=== PATIENT | female | born 1985 | race American Indian/Alaskan Native ===

== ENCOUNTER 2017-07-03 11:39 | Emergency (ER) | payer MEDICAID ==
[2017-07-03 11:51] VITALS: TEMP 97.9
--- NOTE | 2017-07-03 12:07 | ED PDOC ---
Arrival/HPI - General Chief Complaint: Chest Pain Time Seen by Provider: 07/03/17 11:40 Historian: Patient - History of Present Illness Narrative History of Present Illness (Text): 07/03/17 12:05 32 year old female, whose PMH includes asthma, hypertension, who presents to the emergency department complaining of sharp/pressure chest pain since 2 days. Patient reports its non-radiating and has shortness of breath. Patient denies other complaints. PMD: Dr. Sánchez Time/Duration: < week Symptom Onset: Sudden Symptom Course: Unchanged Quality: Pressure Severity Level: 10 Context: Home Past Medical History - Provider Review Nursing Documentation Reviewed: Yes - Infectious Disease Hx of Infectious Diseases: None - Cardiac Hx Hypertension: Yes (noncompliant to meds) - Pulmonary Hx Asthma: Yes - Psychiatric Hx Substance Use: No - Surgical History Hx Section: Yes (3) - Anesthesia Hx Anesthesia: Yes Hx Anesthesia Reactions: No Family/Social History - Physician Review Nursing Documentation Reviewed: Yes Family/Social History: Unknown Family HX Smoking Status: Current Some Days Smoker Hx Alcohol Use: Yes Hx Substance Use: No Allergies/Home Meds Allergies/Adverse Reactions: Allergies Penicillins Allergy (Verified 07/03/17 11:46) RASH Home Medications: Home Meds Medication Instructions Recorded Confirmed Albuterol HFA [Ventolin HFA 90 0.09 mg IH Q6 PRN 01/16/16 07/03/17 mcg/actuation (8 g)] Review of Systems - Review of Systems Constitutional: absent: Fevers Respiratory: SOB. absent: Cough Cardiovascular: Chest Pain Gastrointestinal: absent: Abdominal Pain, Vomiting Genitourinary Female: absent: Dysuria Musculoskeletal: absent: Back Pain Skin: absent: Rash Neurological: absent: Headache Endocrine: absent: Diaphoresis Hemo/Lymphatic: absent: Adenopathy Physical Exam Vital Signs Reviewed: Yes Vital Signs Temp Pulse Pulse Resp BP Pulse Ox 07/04/17 06:16 85 18 132/86 100 07/04/17 03:00 85 18 138/85 100 07/03/17 23:00 81 18 139/84 100 07/03/17 19:18 89 18 130/51 L 100 07/03/17 19:00 95 H 18 145/85 98 07/03/17 17:00 80 18 141/80 98 07/03/17 15:00 102 H 18 152/90 H 98 07/03/17 13:16 101 H 18 147/70 99 07/03/17 12:15 110 H 07/03/17 11:50 97.9 F 130 H 20 142/77 97 Temperature: Afebrile Blood Pressure: Normal Pulse: Tachycardic Respiratory Rate: Normal Appearance: Positive for: Well-Appearing, Non-Toxic, Comfortable Pain Distress: None Mental Status: Positive for: Alert and Oriented X 3 - Systems Exam Head: Present: Atraumatic, Normocephalic Pupils: Present: PERRL Extroacular Muscles: Present: EOMI Conjunctiva: Present: Normal Mouth: Present: Moist Mucous Membranes Respiratory/Chest: Present: Clear to Auscultation, Good Air Exchange. No: Respiratory Distress, Accessory Muscle Use, Wheezes, Rales, Rhonchi Cardiovascular: Present: Normal S1, S2, Tachycardic. No: Regular Rate and Rhythm, Murmurs Abdomen: No: Tenderness, Distention, Peritoneal Signs, Rebound, Guarding Neurological: Present: GCS=15, CN II-XII Intact, Speech Normal Skin: Present: Warm, Dry, Normal Color. No: Rashes Psychiatric: Present: Alert, Oriented x 3, Normal Insight, Normal Concentration Medical Decision Making ED Course and Treatment: 07/03/17 Impression: 32 year old female with tachycardia complaining of chest pain associated with shortness of breath Plan: -- EKG -- Chest X-ray -- Labs -- Urinalysis -- Reassess and disposition Progress Notes: EKG: Ordered, reviewed, and independently interpreted the EKG. Rate : 124 BPM Rhythm : tachycardia Interpretation : No ST-segment elevations or depressions, no T-wave inversions, normal intervals. Comparison : No previous EKG for comparison. 07/03/17 13:30 Chest X-ray: Creator : Raphael Lozada MD FINDINGS: LUNGS:Clear. PLEURA:No pneumothorax or pleural fluid seen. CARDIOVASCULAR:Normal. OSSEOUS STRUCTURES:No significant abnormalities. VISUALIZED UPPER ABDOMEN:Normal. OTHER FINDINGS:None. IMPRESSION: No active disease. 07/03/17 14:07 CT Angiogram reviewed by radiologist, shows: AORTA (CHEST AND ABDOMEN): The thoracic and abdominal aorta are unremarkable, without aneurysm, dissection or rupture. No intramural thrombus identified in the thoracic aorta on the non-contrast ct of the chest. The celiac axis, superior mesenteric artery, inferior mesenteric artery and the renal arteries are widely patent. Incidental finding(s): Two left renal arteries, normal variant The pelvic arteries are unremarkable. LUNGS: Clear. No nodule, mass or consolidation. MEDIASTINUM: Unremarkable. Normal caliber aorta and pulmonary arterial trunk. No aortic dissection. Normal size heart. LYMPH NODES: Unremarkable. PLEURA: Unremarkable. No pneumothorax. No pleural fluid. BONES: Unremarkable. OTHER FINDINGS: None. CT ANGIOGRAPHY OF THE ABDOMEN AND PELVIS WITH CONTRAST: LIVER: Unremarkable. No gross lesion or ductal dilatation. GALLBLADDER AND BILE DUCTS: Unremarkable. PANCREAS: Unremarkable. No gross lesion or ductal dilatation. SPLEEN: Unremarkable. ADRENALS: Unremarkable. No mass. KIDNEYS AND URETERS: Unremarkable. No hydronephrosis. No solid mass. VASCULATURE: Unremarkable. No aortic aneurysm. STOMACH AND BOWEL: Constipation without fecal impaction or obstruction. APPENDIX: A normal appendix is not visualized PERITONEUM: Unremarkable. No free fluid. No free air. LYMPH NODES: Unremarkable. No enlarged lymph nodes. BLADDER: Unremarkable. REPRODUCTIVE: Unremarkable. BONES: No acute fracture. OTHER FINDINGS: None. IMPRESSION: No evidence of aortic aneurysm, dissection or other vascular pathologic process Negative study for pulmonary embolism. 07/06/17 09:24 enodrsed to shift boss pending clinical sobriety, reassesment, and final dispo - Lab Interpretations Lab Results: 07/03/17 12:05 07/03/17 12:05 Lab Results 07/03/17 16:15: Troponin I < 0.01 07/03/17 12:50: Urine HCG, Qual Negative 07/03/17 12:50: Urine Opiates Screen Negative, Urine Methadone Screen Negative, Ur Barbiturates Screen Positive H, Ur Phencyclidine Scrn Negative, Ur Amphetamines Screen Negative, U Benzodiazepines Scrn Negative, U Oth Cocaine Metabols Negative, U Cannabinoids Screen Negative 07/03/17 12:50: Urine Color Light yellow, Urine Appearance Clear, Urine pH 6.0, Ur Specific [place] 1.025, Urine Protein Trace H, Urine Glucose (UA) Negative, Urine Ketones Negative, Urine Blood Negative, Urine Nitrate Negative, Urine Bilirubin Negative, Urine Urobilinogen 0.2, Ur Leukocyte Esterase Negative, Urine RBC Negative, Urine WBC Negative, Ur Epithelial Cells 0 - 2 07/03/17 12:05: Alcohol, Quantitative 401 H* 07/03/17 12:05: Sodium 146, Potassium 3.9, Chloride 107, Carbon Dioxide 22, Anion Gap 21 H, BUN 10, Creatinine 0.9, Est GFR ( Amer) > 60, Est GFR ( Non-Af Amer) > 60, Random Glucose 85, Calcium 8.9, Magnesium 1.9, Total Bilirubin < 0.1 L, AST 66 H, ALT 50, Alkaline Phosphatase 71, Lactate Dehydrogenase 595, Total Creatine Kinase 256 H, CK-MB (CK-2) 1.3, CK-MB (CK-2) % Cancelled, Troponin I < 0.01, NT-Pro-B Natriuret Pep 28.6, Total Protein 7.7, Albumin 4.5, Globulin 3.2, Albumin/Globulin Ratio 1.4, Lipase 98 07/03/17 12:05: PT 9.5, INR 0.83 L, APTT 30.1, D-Dimer, Quantitative 269 H 07/03/17 12:05: WBC 4.7, RBC 3.87, Hgb 10.0 L, Hct 31.9 L, MCV 82.4, MCH 25.8, MCHC 31.3, RDW 17.3 H, Plt Count 364, MPV 8.2, Gran % 34.8 L, Lymph % (Auto) 57.5 H, [place] % (Auto) 6.2 H, Eos % (Auto) 1.1 L, Baso % (Auto) 0.4, Gran # 1.64 , Lymph # (Auto) 2.7, [place] # (Auto) 0.3, Eos # (Auto) 0.1, Baso # (Auto) 0.02 I have reviewed the lab results: Yes - RAD Interpretation Radiology Orders: 07/03/17 12:05 CHEST ONE VIEW [RAD] Stat 07/03/17 12:44 ANGIOGRAPHY DISECTION PROTOCOL [CT] Stat Location Analyst: Radiologist - EKG Interpretation Interpreted by ED Physician: Yes Type: 12 lead EKG - Medication Orders Current Medication Orders: Discontinued Medications Acetaminophen (Tylenol 325mg Tab) 975 mg PO STAT STA Stop: 07/03/17 12:07 Last Admin: 07/03/17 12:11 Dose: 975 mg MAR Pain/Vitals Document 07/03/17 12:11 EWO (Rec: 07/03/17 12:11 EWO [id number]) Pain Reassessment Is This A Pain ReAssessment? No Sleep Is patient sleeping during reassessment? No Presence of Pain Presence of Pain Yes Pain Scale Used Pain Scale Used Numeric Location Pain Location Body Site Chest Description Constant Pressure Intensity 3 Scale Used Numeric Pain Behavior Guarding Acetaminophen (Tylenol 325mg Tab) 650 mg PO STAT STA Stop: 07/03/17 16:58 Last Admin: 07/03/17 17:05 Dose: 650 mg MAR Pain/Vitals Document 07/03/17 17:05 EWO (Rec: 07/03/17 17:05 [facility] [id number]) Pain Reassessment Is This A Pain ReAssessment? Yes Sleep Is patient sleeping during reassessment? No Presence of Pain Presence of Pain Yes Pain Scale Used Pain Scale Used Numeric Location Pain Location Body Site Chest Description Intermittent Intensity 4 Scale Used Numeric Sodium Chloride (Sodium Chloride 0.9%) 1,000 mls @ 999 mls/hr IV .Q1H1M STA Stop: 07/03/17 16:27 Last Admin: 07/03/17 16:30 Dose: 999 mls/hr eMAR Start Stop Document 07/03/17 16:30 EWO (Rec: 07/03/17 17:05 [facility] [id number]) Intravenous Solution Start Date 07/03/17 Start Time 16:30 End Date 07/03/17 End time 17:30 Total Infusion Time 60 Ketorolac Tromethamine (Toradol) 30 mg IVP STAT STA Stop: 07/03/17 13:34 Last Admin: 07/03/17 15:16 Dose: 30 mg MAR Pain Assessment Document 07/03/17 15:16 EWO (Rec: 07/03/17 15:17 [facility] [id number]) Pain Reassessment Is this a pain reassessment? Yes Sleep Is patient sleeping during reassessment? No Presence of Pain Presence of Pain Yes Pain Scale Used Pain Scale Used Numeric Location Pain Location Body Site Chest Description Description Intermittent Intensity of Pain at present 4 IVP Administration Document 07/03/17 15:16 EWO (Rec: 07/03/17 15:17 [facility] [id number]) Charges for Administration # of IVP Administrations 1 Ondansetron HCl (Zofran Inj) 4 mg IVP ONCE ONE Stop: 07/03/17 20:37 Last Admin: 07/03/17 20:45 Dose: 4 mg IVP Administration Document 07/03/17 20:45 AD (Rec: 07/03/17 20:45 AD [id number]) Charges for Administration # of IVP Administrations 1 - Scribe Statement The provider has reviewed the documentation as recorded by the Scribe Rebecca Martin Provider Scribe Attestation: All medical record entries made by the Scribe were at my direction and personally dictated by me. I have reviewed the chart and agree that the record accurately reflects my personal performance of the history, physical exam, medical decision making, and the department course for this patient. I have also personally directed, reviewed, and agree with the discharge instructions and disposition. Disposition/Present on Arrival - Present on Arrival Any Indicators Present on Arrival: No History of DVT/PE: No History of Uncontrolled Diabetes: No Urinary Catheter: No History of Decub. Ulcer: No History Surgical Site Infection Following: None - Disposition Have Diagnosis and Disposition been Completed?: Yes Diagnosis: Alcohol intoxication, Musculoskeletal chest pain Disposition: HOME/ ROUTINE Disposition Time: 09:20 Condition: GOOD Discharge Instructions (ExitCare): Alcohol Abuse and Alcoholism (DC), Chest Pain (ED) Additional Instructions: Avoid alcohol use/advil as directed/follow up with your doctor this week Referrals: Austin Sánchez MD [Primary Care Provider] - Follow up with primary Forms: [employer] (Slovak)
[2017-07-03 12:14] LABS: BASO # 0.02 K/mm3 (0.0-2.0); BASO % 0.4 % (0.0-3.0); EOS # 0.1 (0.0-0.7); EOS % 1.1 % (1.5-5.0); GRAN # 1.64 (1.4-6.5); GRAN % 34.8 % (50.0-68.0); LYMPH # 2.7 (1.2-3.4); LYMPH % 57.5 % (22.0-35.0); MEAN CELL VOLUME 82.4 fl (80.0-105.0); MEAN CORPUSCULAR HEMOGLOBIN 25.8 pg (25.0-35.0); MEAN CORPUSCULAR HGB CONC 31.3 g/dl (31.0-37.0); MEAN PLATELET VOLUME 8.2 fl (7.0-11.0); MONO # 0.3 (0.1-0.6); MONO % 6.2 % (1.0-6.0); RBC 3.87 10^6/uL (3.5-6.1); RED CELL DISTRIBUTION WIDTH 17.3 % (11.5-14.5); WHITE BLOOD COUNT 4.7 10^3/ul (4.5-11.0)
[2017-07-03 12:24] LABS: ALB/GLOB RATIO 1.4 (1.1-1.8); ALBUMIN 4.5 g/dL (3.0-4.8); ALT/SGPT 50 U/L (7-56); AST/SGOT 66 U/L (14-36); BLOOD UREA NITROGEN 10 mg/dL (7-21); CALCIUM 8.9 mg/dL (8.4-10.5); GFR AFRICAN-AMERICAN > 60; GFR NON-AFRICAN AMERICAN > 60; LIPASE 98 U/L (23-300)
[2017-07-03 12:36] LABS: B-TYPE NATRIURETIC PEPTIDE 28.6 pg/mL (0-450); TROPONIN I < 0.01 ng/mL
[2017-07-03 12:37] LABS: INR 0.83 (0.93-1.08); PARTIAL THROMBOPLASTIN TIME 30.1 Seconds (25.1-36.5); PROTHROMBIN TIME 9.5 SECONDS (9.4-12.5)
[2017-07-03 12:48] LABS: CK-MB 1.3 ng/mL (0.0-3.6)
[2017-07-03 13:01] LABS: URINE BILIRUBIN NEGATIVE (NEGATIVE); URINE BLOOD NEGATIVE (NEGATIVE); URINE GLUCOSE (UA) NEGATIVE (NEGATIVE); URINE LEUKOCYTE ESTERASE NEGATIVE Leu/uL (NEGATIVE); URINE PROTEIN TRACE mg/dL (<30 mg/dL); URINE UROBILINOGEN 0.2 E.U./dL (<1 E.U./dL)
[2017-07-03 13:03] LABS: URINE APPEARANCE CLEAR (CLEAR); URINE COLOR LIGHT YELLOW (YELLOW)
[2017-07-03 13:17] VITALS: RESP 18
[2017-07-03 13:17] LABS: URINE EPITHELIAL CELLS 0 - 2 /hpf (0-5); URINE RBC NEGATIVE /hpf (0-2); URINE WBC NEGATIVE /hpf (0-6)
[2017-07-03 13:23] LABS: BARBITURATES, UR POSITIVE (NEGATIVE); BENZODIAZEPINES, UR NEGATIVE (NEGATIVE); OPIATES, UR NEGATIVE (NEGATIVE); PHENCYCLIDINE, UR NEGATIVE (NEGATIVE)
--- NOTE | 2017-07-03 13:23 | CT ---
PROCEDURE: CT Angiography Chest, Abdomen and Pelvis with and without intravenous contrast HISTORY: cp radiating to back, also eval for pe COMPARISON: None. TECHNIQUE: This CT exam was performed using one or more of the following dose reduction techniques: Automated exposure control, adjustment of the mA and/or kV according to patient size, and/or use of iterative reconstruction technique. IV dose administered: 150 cc Omnipaque 350 Mean Hounsfield unit values in the main pulmonary artery: 340.21 Radiation dose: Total exam DLP = 361.57 mGy-cm. FINDINGS: CT ANGIOGRAPHY OF THE CHEST WITH & WITHOUT CONTRAST: AORTA (CHEST AND ABDOMEN): The thoracic and abdominal aorta are unremarkable, without aneurysm, dissection or rupture. No intramural thrombus identified in the thoracic aorta on the non-contrast ct of the chest. The celiac axis, superior mesenteric artery, inferior mesenteric artery and the renal arteries are widely patent. Incidental finding(s): Two left renal arteries, normal variant The pelvic arteries are unremarkable. LUNGS: Clear. No nodule, mass or consolidation. MEDIASTINUM: Unremarkable. Normal caliber aorta and pulmonary arterial trunk. No aortic dissection. Normal size heart. LYMPH NODES: Unremarkable. PLEURA: Unremarkable. No pneumothorax. No pleural fluid. BONES: Unremarkable. OTHER FINDINGS: None. CT ANGIOGRAPHY OF THE ABDOMEN AND PELVIS WITH CONTRAST: LIVER: Unremarkable. No gross lesion or ductal dilatation. GALLBLADDER AND BILE DUCTS: Unremarkable. PANCREAS: Unremarkable. No gross lesion or ductal dilatation. SPLEEN: Unremarkable. ADRENALS: Unremarkable. No mass. KIDNEYS AND URETERS: Unremarkable. No hydronephrosis. No solid mass. VASCULATURE: Unremarkable. No aortic aneurysm. STOMACH AND BOWEL: Constipation without fecal impaction or obstruction. APPENDIX: A normal appendix is not visualized PERITONEUM: Unremarkable. No free fluid. No free air. LYMPH NODES: Unremarkable. No enlarged lymph nodes. BLADDER: Unremarkable. REPRODUCTIVE: Unremarkable. BONES: No acute fracture. OTHER FINDINGS: None. IMPRESSION: No evidence of aortic aneurysm, dissection or other vascular pathologic process. Negative study for pulmonary embolism.
--- NOTE | 2017-07-03 13:24 | RAD ---
PROCEDURE: CHEST RADIOGRAPH, 1 VIEW HISTORY: Chest pain. COMPARISON: None available. FINDINGS: LUNGS: Clear. PLEURA: No pneumothorax or pleural fluid seen. CARDIOVASCULAR: Normal. OSSEOUS STRUCTURES: No significant abnormalities. VISUALIZED UPPER ABDOMEN: Normal. OTHER FINDINGS: None. IMPRESSION: No active disease.
[2017-07-03] MEDS ORDERED: Sodium Chloride 0.9% 1,000 ML IV STA (15:27)
[2017-07-03] MEDS ORDERED: Albuterol-Ipratrop 3 mg / 0.5 (3 ml) UD ONE (15:32)
[2017-07-03 19:19] VITALS: O2SAT 100
--- NOTE | 2017-07-03 19:54 | ED PDOC ---
Physical Exam - Physical Exam Narrative Physical Exam (Text): 07/03/17 19:00 Case endorsed to me from awaiting patient sobriety prior to discharge.Pt. presented intoxicated complaining of some chest discomfort.Pt. with negative workup ,negative serial enzymes,negative CT chest. Vital Signs Temp Pulse Pulse Resp BP Pulse Ox 07/04/17 03:00 85 18 138/85 100 07/03/17 23:00 81 18 139/84 100 07/03/17 19:18 89 18 130/51 L 100 07/03/17 19:00 95 H 18 145/85 98 07/03/17 17:00 80 18 141/80 98 07/03/17 15:00 102 H 18 152/90 H 98 07/03/17 13:16 101 H 18 147/70 99 07/03/17 12:15 110 H 07/03/17 11:50 97.9 F 130 H 20 142/77 97 Medical Decision Making - Lab Interpretations Lab Results: 07/03/17 12:05 07/03/17 12:05 Lab Results 07/03/17 16:15: Troponin I < 0.01 07/03/17 12:50: Urine HCG, Qual Negative 07/03/17 12:50: Urine Opiates Screen Negative, Urine Methadone Screen Negative, Ur Barbiturates Screen Positive H, Ur Phencyclidine Scrn Negative, Ur Amphetamines Screen Negative, U Benzodiazepines Scrn Negative, U Oth Cocaine Metabols Negative, U Cannabinoids Screen Negative 07/03/17 12:50: Urine Color Light yellow, Urine Appearance Clear, Urine pH 6.0, Ur Specific [place] 1.025, Urine Protein Trace H, Urine Glucose (UA) Negative, Urine Ketones Negative, Urine Blood Negative, Urine Nitrate Negative, Urine Bilirubin Negative, Urine Urobilinogen 0.2, Ur Leukocyte Esterase Negative, Urine RBC Negative, Urine WBC Negative, Ur Epithelial Cells 0 - 2 07/03/17 12:05: Alcohol, Quantitative 401 H* 07/03/17 12:05: Sodium 146, Potassium 3.9, Chloride 107, Carbon Dioxide 22, Anion Gap 21 H, BUN 10, Creatinine 0.9, Est GFR ( Amer) > 60, Est GFR ( Non-Af Amer) > 60, Random Glucose 85, Calcium 8.9, Magnesium 1.9, Total Bilirubin < 0.1 L, AST 66 H, ALT 50, Alkaline Phosphatase 71, Lactate Dehydrogenase 595, Total Creatine Kinase 256 H, CK-MB (CK-2) 1.3, CK-MB (CK-2) % Cancelled, Troponin I < 0.01, NT-Pro-B Natriuret Pep 28.6, Total Protein 7.7, Albumin 4.5, Globulin 3.2, Albumin/Globulin Ratio 1.4, Lipase 98 07/03/17 12:05: PT 9.5, INR 0.83 L, APTT 30.1, D-Dimer, Quantitative 269 H 07/03/17 12:05: WBC 4.7, RBC 3.87, Hgb 10.0 L, Hct 31.9 L, MCV 82.4, MCH 25.8, MCHC 31.3, RDW 17.3 H, Plt Count 364, MPV 8.2, Gran % 34.8 L, Lymph % (Auto) 57.5 H, [place] % (Auto) 6.2 H, Eos % (Auto) 1.1 L, Baso % (Auto) 0.4, Gran # 1.64 , Lymph # (Auto) 2.7, [place] # (Auto) 0.3, Eos # (Auto) 0.1, Baso # (Auto) 0.02 - RAD Interpretation Radiology Orders: 07/03/17 12:05 CHEST ONE VIEW [RAD] Stat 07/03/17 12:44 ANGIOGRAPHY DISECTION PROTOCOL [CT] Stat - Medication Orders Current Medication Orders: Discontinued Medications Acetaminophen (Tylenol 325mg Tab) 975 mg PO STAT STA Stop: 07/03/17 12:07 Last Admin: 07/03/17 12:11 Dose: 975 mg MAR Pain/Vitals Document 07/03/17 12:11 EWO (Rec: 07/03/17 12:11 EWO [id number]) Pain Reassessment Is This A Pain ReAssessment? No Sleep Is patient sleeping during reassessment? No Presence of Pain Presence of Pain Yes Pain Scale Used Pain Scale Used Numeric Location Pain Location Body Site Chest Description Constant Pressure Intensity 3 Scale Used Numeric Pain Behavior Guarding Acetaminophen (Tylenol 325mg Tab) 650 mg PO STAT STA Stop: 07/03/17 16:58 Last Admin: 07/03/17 17:05 Dose: 650 mg MAR Pain/Vitals Document 07/03/17 17:05 EWO (Rec: 07/03/17 17:05 EWO [id number]) Pain Reassessment Is This A Pain ReAssessment? Yes Sleep Is patient sleeping during reassessment? No Presence of Pain Presence of Pain Yes Pain Scale Used Pain Scale Used Numeric Location Pain Location Body Site Chest Description Intermittent Intensity 4 Scale Used Numeric Sodium Chloride (Sodium Chloride 0.9%) 1,000 mls @ 999 mls/hr IV .Q1H1M STA Stop: 07/03/17 16:27 Last Admin: 07/03/17 16:30 Dose: 999 mls/hr eMAR Start Stop Document 07/03/17 16:30 EWO (Rec: 07/03/17 17:05 O [id number]) Intravenous Solution Start Date 07/03/17 Start Time 16:30 End Date 07/03/17 End time 17:30 Total Infusion Time 60 Ketorolac Tromethamine (Toradol) 30 mg IVP STAT STA Stop: 07/03/17 13:34 Last Admin: 07/03/17 15:16 Dose: 30 mg MAR Pain Assessment Document 07/03/17 15:16 EWO (Rec: 07/03/17 15:17 EWO [id number]) Pain Reassessment Is this a pain reassessment? Yes Sleep Is patient sleeping during reassessment? No Presence of Pain Presence of Pain Yes Pain Scale Used Pain Scale Used Numeric Location Pain Location Body Site Chest Description Description Intermittent Intensity of Pain at present 4 IVP Administration Document 07/03/17 15:16 EWO (Rec: 07/03/17 15:17 EWO [id number]) Charges for Administration # of IVP Administrations 1 Ondansetron HCl (Zofran Inj) 4 mg IVP ONCE ONE Stop: 07/03/17 20:37 Last Admin: 07/03/17 20:45 Dose: 4 mg IVP Administration Document 07/03/17 20:45 AD (Rec: 07/03/17 20:45 AD [id number]) Charges for Administration # of IVP Administrations 1 Disposition/Present on Arrival - Present on Arrival Any Indicators Present on Arrival: No History of DVT/PE: No History of Uncontrolled Diabetes: No Urinary Catheter: No History of Decub. Ulcer: No History Surgical Site Infection Following: None - Disposition Have Diagnosis and Disposition been Completed?: Yes Diagnosis: Alcohol intoxication, Musculoskeletal chest pain Disposition: HOME/ ROUTINE Disposition Time: 06:03 Patient Plan: Discharge Condition: GOOD Discharge Instructions (ExitCare): Chest Pain (ED), Alcohol Abuse and Alcoholism (DC) Additional Instructions: Avoid alcohol use/advil as directed/follow up with your doctor this week Referrals: Austin Sánchez MD [Primary Care Provider] - Follow up with primary Forms: [employer] (Citizen Of [place])
[2017-07-04 04:51] VITALS: PULSE 85
[2017-07-04 06:18] VITALS: BP 132/86
--- NOTE | 2017-07-04 09:27 | CARD ---
APPROVED REPORT EKG Measurement Heart [id number] <Conclusion> Sinus tachycardia Biatrial enlargement Nonspecific T wave abnormality RVCD LVH by voltage Prolonged QTc
== END 2017-07-04 06:16 | disposition home or self-care (01) ==
LOC: ED 11:39
DX: F10.129 Alcohol abuse with intoxication, unspecified (principal); R07.89 Other chest pain; F17.200 Nicotine dependence, unspecified, uncomplicated; I10 Essential (primary) hypertension
CPT/HCPCS: 71045; 71275; 74175; 80053; 80320; 80324; 80345; 80346; 80349; 80353; 80358; 80361; 81001; 82550; 82553; 83615; 83690; 83735; 83880; 83992; 84484; 84703; 85025; 85378; 85610; 85730; 93005; 96361; 96374; 96375; 99285; J1885; J2405; J7040; Q9967

== ENCOUNTER 2018-01-03 09:04 | Emergency (ER) | payer MEDICAID ==
[2018-01-03 09:28] VITALS: O2SAT 100
[2018-01-03] MEDS ORDERED: Sodium Chloride 0.9% 1,000 ML IV STA (10:05)
--- NOTE | 2018-01-03 10:11 | ED PDOC ---
Arrival/HPI - General Chief Complaint: Abdominal Pain Time Seen by Provider: 01/03/18 09:06 Historian: Patient - History of Present Illness Narrative History of Present Illness (Text): 01/03/18 10:08 32 yo F with PMhx of asthma, HTN, medication noncompliance presenting to ED with epigastric abdominal pain that began 2 days ago. Patient states the pain is sharp and colicky in nature, comes and goes, currently rated 5/10, localized to epigastric region with radiation to the back. Patient also endorses associated nausea and 1 episode of NBNB vomiting. Denies fevers/chills, headaches, dizziness, chest pain, palpitations, diarrhea, constipation, dysuria, or changes in stool. PMHx: asthma, HTN PSHx: denies Allergies: PCN Home Meds: as per chart Social Hx: +alcohol-last drank yesterday, +tobacco-3 cigarettes/day x 15 years, denies drug use FHx: noncontributory PMD: Dr. Sánchez Time/Duration: < week Symptom Onset: Sudden Symptom Course: [place] Quality: Stabbing Severity Level: 5 Activities at Onset: Light Past Medical History - Provider Review Nursing Documentation Reviewed: Yes - Infectious Disease Hx of Infectious Diseases: None - Cardiac Hx Hypertension: Yes (noncompliant to meds) - Pulmonary Hx Asthma: Yes - Psychiatric Hx Substance Use: No - Surgical History Hx Section: Yes (2x) - Anesthesia Hx Anesthesia: Yes Hx Anesthesia Reactions: No Family/Social History - Physician Review Nursing Documentation Reviewed: Yes Family/Social History: Unknown Family HX Smoking Status: Current Some Days Smoker Hx Alcohol Use: Yes Frequency of alcohol use: Few days per week Hx Substance Use: No Allergies/Home Meds Allergies/Adverse Reactions: Allergies Penicillins Allergy (Verified 01/03/18 09:28) RASH Home Medications: Home Meds Medication Instructions Recorded Confirmed Albuterol HFA [Ventolin HFA 90 0.09 mg IH Q6 PRN 01/16/16 01/03/18 mcg/actuation (8 g)] Enalapril Maleate [Vasotec] 20 mg PO DAILY 01/03/18 01/03/18 Review of Systems - Review of Systems Constitutional: Normal Eyes: Normal ENT: Normal Respiratory: Normal. absent: SOB, Cough, Sputum, Wheezing Cardiovascular: Normal. absent: Chest Pain, Palpitations, Calf Pain, DIAZ, Syncope Gastrointestinal: Abdominal Pain (epigastric), Appetite Changes (decreased appetite). absent: Constipation, Diarrhea, Nausea, Vomiting Genitourinary Female: Normal Musculoskeletal: Back Pain Skin: Normal. absent: Rash, Skin Lesions, Laceration Neurological: Normal. absent: Headache, Dizziness, Focal Weakness, Gait Changes Endocrine: Normal Hemo/Lymphatic: Normal Psychiatric: Normal Physical Exam Vital Signs Reviewed: Yes Vital Signs Temp Pulse Resp BP Pulse Ox 01/03/18 09:24 97.5 F L 100 H 22 161/118 H 100 Temperature: Afebrile Blood Pressure: Hypertensive Pulse: Tachycardic Respiratory Rate: Normal Appearance: Positive for: Well-Appearing, Non-Toxic, Comfortable Pain Distress: Mild Mental Status: Positive for: Alert and Oriented X 3 - Systems Exam Head: Present: Atraumatic, Normocephalic Pupils: Present: PERRL Extroacular Muscles: Present: EOMI Conjunctiva: Present: Normal Mouth: Present: Moist Mucous Membranes Neck: Present: Normal Range of Motion Respiratory/Chest: Present: Clear to Auscultation, Good Air Exchange. No: Respiratory Distress, Accessory Muscle Use, Wheezes, Rales, Rhonchi Cardiovascular: Present: Normal S1, S2, Tachycardic Abdomen: Present: Tenderness (TTP epigastric region), Normal Bowel Sounds. No: Distention, Peritoneal Signs, Rebound, Guarding, Mass/Organomegaly Back: Present: Normal Inspection. No: CVA Tenderness, Paraspinal Tenderness Upper Extremity: Present: Normal Inspection, Normal ROM, NORMAL PULSES, Capillary Refill < 2s. No: Cyanosis, Edema, Tenderness, Swelling Lower Extremity: Present: Normal Inspection, NORMAL PULSES, Normal ROM, Capillary Refill < 2 s. No: Edema, CALF TENDERNESS, Cyanosis, Tenderness, Swelling Neurological: Present: CN II-XII Intact, Speech Normal Skin: Present: Warm, Dry, Normal Color. No: Rashes Psychiatric: Present: Alert, Oriented x 3, Normal Insight, Normal Concentration Medical Decision Making ED Course and Treatment: 01/03/18 10:13 32 yo F with PMHx of HTN, asthma presenting to ED with epigastric abdominal pain x 2 days, r/o pancreatitis Plan: --CBC, CMP --lipase, amylase --IVF --zofran --CT abdomen/pelvis --UA --urine --reassess and disposition - RAD Interpretation Radiology Orders: 01/03/18 10:05 ABD & PELVIS IV CONTRAST ONLY [CT] Stat - Medication Orders Current Medication Orders: Sodium Chloride (Sodium Chloride 0.9%) 1,000 mls @ 999 mls/hr IV .Q1H1M STA Stop: 01/03/18 11:05 Ondansetron HCl (Zofran Inj) 4 mg IVP STAT STA Stop: 01/03/18 10:06 Disposition/Present on Arrival - Present on Arrival Any Indicators Present on Arrival: No History of DVT/PE: No History of Uncontrolled Diabetes: No Urinary Catheter: No History of Decub. Ulcer: No History Surgical Site Infection Following: None - Disposition Have Diagnosis and Disposition been Completed?: Yes Diagnosis: Colitis Disposition: HOME/ ROUTINE Disposition Time: 12:31 Patient Plan: Discharge Condition: STABLE Discharge Instructions (ExitCare): Irritable Bowel Syndrome (DC), Inflammatory Bowel Disease (DC) Additional Instructions: DANIELLE ZHU, thank you for letting us take care of you today. Your provider was Scot Keating MD and you were treated for STOMACH PAIN. The emergency medical care you received today was directed at your acute symptoms. If you were prescribed any medication, please fill it and take as directed. It may take several days for your symptoms to resolve. Return to the Emergency Department if your symptoms worsen, do not improve, or if you have any other problems. Please contact your doctor or call one of the physicians/clinics you have been referred to that are listed on the Patient Visit Information form that is included in your discharge packet. Bring any paperwork you were given at discharge with you along with any medications you are taking to your follow up visit. Our treatment cannot replace ongoing medical care by a primary care provider outside of the emergency department. Thank you for allowing the [facility] team to be part of your care today. Prescriptions: Ciprofloxacin [Cipro] 500 mg PO BID 10 Days #20 tab Metronidazole [Flagyl] 500 mg PO TID 10 Days #30 tablet Referrals: [facility] at [facility] [Outside] - Follow up with primary Ju Ku MD [Medical Doctor] - Follow up with primary Lydia Matos MD [Medical Doctor] - Follow up with primary Forms: [employer] (Azeri), WORK NOTE
[2018-01-03 10:14] LABS: URINE BILIRUBIN NEGATIVE (NEGATIVE); URINE BLOOD NEGATIVE (NEGATIVE); URINE GLUCOSE (UA) NEGATIVE (NEGATIVE); URINE LEUKOCYTE ESTERASE NEGATIVE Leu/uL (NEGATIVE); URINE PROTEIN NEGATIVE mg/dL (<30 mg/dL); URINE UROBILINOGEN 0.2 E.U./dL (<1 E.U./dL)
[2018-01-03 10:15] LABS: URINE APPEARANCE CLEAR (CLEAR); URINE COLOR YELLOW (YELLOW)
[2018-01-03 10:38] LABS: BASO # 0.01 K/mm3 (0.0-2.0); BASO % 0.3 % (0.0-3.0); EOS # 0.1 (0.0-0.7); EOS % 1.4 % (1.5-5.0); GRAN # 1.77 (1.4-6.5); GRAN % 49.3 % (50.0-68.0); HEMOGLOBIN 11.5 g/dL (12.0-16.0); LYMPH # 1.6 (1.2-3.4); LYMPH % 43.7 % (22.0-35.0); MEAN CELL VOLUME 84.8 fl (80.0-105.0); MEAN CORPUSCULAR HEMOGLOBIN 26.5 pg (25.0-35.0); MEAN CORPUSCULAR HGB CONC 31.3 g/dl (31.0-37.0); MEAN PLATELET VOLUME 8.5 fl (7.0-11.0); MONO # 0.2 (0.1-0.6); MONO % 5.3 % (1.0-6.0); RBC 4.34 10^6/uL (3.5-6.1); RED CELL DISTRIBUTION WIDTH 18.2 % (11.5-14.5); WHITE BLOOD COUNT 3.6 10^3/ul (4.5-11.0)
[2018-01-03 10:51] LABS: ALB/GLOB RATIO 1.3 (1.1-1.8); ALBUMIN 4.7 g/dL (3.0-4.8); ALT/SGPT 45 U/L (7-56); AMYLASE 95 U/L (35-125); AST/SGOT 64 U/L (14-36); BLOOD UREA NITROGEN 15 mg/dL (7-21); CALCIUM 9.3 mg/dL (8.4-10.5); GFR NON-AFRICAN AMERICAN > 60; LIPASE 89 U/L (23-300)
[2018-01-03] MEDS ORDERED: Iohexol 350 MG/100 ML VIAL ONE (11:23)
--- NOTE | 2018-01-03 11:56 | CT ---
Date of service: 01/03/2018 PROCEDURE: CT Abdomen and Pelvis with contrast HISTORY: epigastric pain COMPARISON: None. TECHNIQUE: Contrast dose: 100 mL Omnipaque 350 Radiation dose: Total exam DLP = 256.66 mGy-cm. This CT exam was performed using one or more of the following dose reduction techniques: Automated exposure control, adjustment of the mA and/or kV according to patient size, and/or use of iterative reconstruction technique. FINDINGS: LOWER THORAX: Unremarkable. LIVER: Unremarkable. No gross lesion or ductal dilatation. GALLBLADDER AND BILE DUCTS: Unremarkable. PANCREAS: Unremarkable. No gross lesion or ductal dilatation. SPLEEN: Unremarkable. ADRENALS: Unremarkable. No mass. KIDNEYS AND URETERS: Unremarkable. No hydronephrosis. No solid mass. VASCULATURE: Unremarkable. No aortic aneurysm. BOWEL: Circumferential mural thickening of the distal ascending colon, hepatic flexure and proximal transverse colon consistent with nonspecific colitis. No bowel obstruction. No other abnormal bowel loops are identified. APPENDIX: Not identified PERITONEUM: Unremarkable. No free fluid. No free air. LYMPH NODES: Unremarkable. No enlarged lymph nodes. BLADDER: Unremarkable. REPRODUCTIVE: Unremarkable. BONES: No acute fracture. OTHER FINDINGS: None. IMPRESSION: Findings consistent with nonspecific colitis involving ascending colon, hepatic flexure and transverse colon as described. No other significant abnormality is identified.
[2018-01-03 12:34] VITALS: BP 145/93; PULSE 91; RESP 18; TEMP 98
== END 2018-01-03 12:43 | disposition home or self-care (01) ==
LOC: ED 09:04
DX: K52.9 Noninfective gastroenteritis and colitis, unspecified (principal); I10 Essential (primary) hypertension
CPT/HCPCS: 74177; 80053; 81003; 82150; 83690; 83735; 84100; 85025; 96361; 96374; 99284; J2405; J7030; Q9967

== ENCOUNTER 2018-03-02 01:42 | Observation (INO) | payer MEDICAID ==
--- NOTE | 2018-03-02 02:23 | ED PDOC ---
Arrival/HPI - General Chief Complaint: Chest Pain Time Seen by Provider: 03/02/18 01:43 Historian: Patient - History of Present Illness Narrative History of Present Illness (Text): 03/02/18 02:19 32 year old female, whose past medical history includes asthma, hypertension, presents to the emergency department complaining of chest and back pain, since yesterday. Patient states the pain is sharp and intermittent. Patient informs pain is localized to left chest. Patient states she has been feeling some nausea and vomiting. Patient also informs of dizziness and possible syncopal episode recently. Patient informs chest pain is exacerbated by deeper inhalation. Patient denies any fevers, chills, headache, cough, abdominal pain, diarrhea, neck pain, urinary/bowel changes, or any other complaint. Time/Duration: 24 hours Symptom Course: Unchanged Context: Home Past Medical History - Provider Review Nursing Documentation Reviewed: Yes - Infectious Disease Hx of Infectious Diseases: None - Cardiac Hx Cardiac Disorders: Yes Hx Hypertension: Yes (noncompliant to meds) - Pulmonary Hx Respiratory Disorders: Yes Hx Asthma: Yes - Psychiatric Hx Substance Use: No - Surgical History Hx Section: Yes (x3) - Anesthesia Hx Anesthesia: Yes Hx Anesthesia Reactions: No Family/Social History - Physician Review Nursing Documentation Reviewed: Yes Family/Social History: No Known Family HX Smoking Status: Light Smoker < 10 Cigarettes Daily Hx Alcohol Use: Yes Frequency of alcohol use: Socially Hx Substance Use: No Allergies/Home Meds Allergies/Adverse Reactions: Allergies Penicillins Allergy (Verified 01/03/18 09:28) RASH Home Medications: Home Meds Medication Instructions Recorded Confirmed Albuterol HFA [Ventolin HFA 90 0.09 mg IH Q6 PRN 01/16/16 03/02/18 mcg/actuation (8 g)] Enalapril Maleate [Vasotec] 30 mg PO TID 01/03/18 03/02/18 Acetaminophen/Butalbital/Caf 1 tab PO PRN PRN 03/02/18 03/02/18 [Fioricet] Review of Systems - Physician Review All systems were reviewed & negative as marked: Yes - Review of Systems Constitutional: absent: Fevers, Night Sweats Cardiovascular: Chest Pain Gastrointestinal: Nausea, Vomiting. absent: Abdominal Pain, Diarrhea Musculoskeletal: Back Pain. absent: Neck Pain Neurological: Dizziness. absent: Headache Physical Exam Vital Signs Reviewed: Yes Vital Signs Temp Pulse Resp BP Pulse Ox 03/02/18 01:50 98.6 F 102 H 20 165/115 H 100 Temperature: Afebrile Blood Pressure: Hypertensive Pulse: Tachycardic Respiratory Rate: Normal Appearance: Positive for: Well-Appearing, Non-Toxic, Comfortable Pain Distress: None Mental Status: Positive for: Alert and Oriented X 3 - Systems Exam Head: Present: Atraumatic, Normocephalic Pupils: Present: PERRL Extroacular Muscles: Present: EOMI Conjunctiva: Present: Normal Mouth: Present: Moist Mucous Membranes Neck: Present: Normal Range of Motion Respiratory/Chest: Present: Clear to Auscultation, Good Air Exchange. No: Respiratory Distress, Accessory Muscle Use Cardiovascular: Present: Normal S1, S2, Tachycardic, Other (Hypertensive) Abdomen: No: Tenderness, Distention, Peritoneal Signs Back: Present: Normal Inspection Upper Extremity: Present: Normal Inspection. No: Cyanosis, Edema Lower Extremity: Present: Normal Inspection. No: Edema Neurological: Present: Speech Normal Skin: Present: Warm, Dry, Normal Color. No: Rashes Psychiatric: Present: Alert, Oriented x 3, Normal Insight, Normal Concentration Medical Decision Making ED Course and Treatment: 03/02/18 02:29 Impression: 32 year old female presents with chest and back pain. Plan: -- Labs -- Chest X-ray -- Urinalysis -- Toradol -- Reassess and disposition Prior Visits: Notes and results from previous visits were reviewed. Progress Notes: 03/02/18 05:[address] Pavon about patient's case, and he accepts admission of patient for ACS. - RAD Interpretation Narrative RAD Interpretations (Text): 03/02/18 05:54 CTA OF THE CHEST WITH IV CONTRAST CLINICAL HISTORY: Shortness of breath, chest pain. TECHNIQUE: Axial and reformatted sagittal and coronal images of the chest obtained after bolus IV contrast administration. FINDINGS: Normal enhancement of the main pulmonary artery and right and left pulmonary arteries. Normal enhancement of the bilateral peripheral pulmonary arteries. There is no demonstrated pulmonary embolism. Normal thoracic aorta and visualized great vessels. There is no demonstrated aortic dissection. Normal heart and pericardium. Normal mediastinum. Normal hilar regions. Normal visualized trachea and bronchi. The lungs are well expanded. Normal pulmonary parenchyma. Normal pleura. Normal chest wall structures. Normal osseous structures. Hepatomegaly with hepatic steatosis. IMPRESSION: No demonstrated pulmonary embolism or arterial dissection. Farm Implement Mechanic: Radiologist - Scribe Statement The provider has reviewed the documentation as recorded by the Scribe Parag Johnson Provider Scribe Attestation: All medical record entries made by the Scribe were at my direction and personally dictated by me. I have reviewed the chart and agree that the record accurately reflects my personal performance of the history, physical exam, medical decision making, and the department course for this patient. I have also personally directed, reviewed, and agree with the discharge instructions and disposition. Disposition/Present on Arrival - Present on Arrival History of DVT/PE: No History of Uncontrolled Diabetes: No Urinary Catheter: No History of Decub. Ulcer: No History Surgical Site Infection Following: None - Disposition
[2018-03-02] MEDS ORDERED: Sodium Chloride 0.9% 1,000 ML IV STA (02:27)
[2018-03-02 03:06] LABS: BASO # 0.01 K/mm3 (0.0-2.0); BASO % 0.2 % (0.0-3.0); GRAN # 3.07 (1.4-6.5); GRAN % 60.1 % (50.0-68.0); HEMOGLOBIN 11.9 g/dL (12.0-16.0); LYMPH # 1.7 (1.2-3.4); LYMPH % 32.3 % (22.0-35.0); MEAN CELL VOLUME 87.4 fl (80.0-105.0); MEAN CORPUSCULAR HEMOGLOBIN 27.8 pg (25.0-35.0); MEAN CORPUSCULAR HGB CONC 31.8 g/dl (31.0-37.0); MEAN PLATELET VOLUME 8.4 fl (7.0-11.0); MONO # 0.4 (0.1-0.6); MONO % 7.4 % (1.0-6.0); RBC 4.28 10^6/uL (3.5-6.1); RED CELL DISTRIBUTION WIDTH 18.1 % (11.5-14.5); WHITE BLOOD COUNT 5.1 10^3/uL (4.5-11.0)
[2018-03-02 03:09] LABS: URINE BILIRUBIN NEGATIVE (NEGATIVE); URINE BLOOD LARGE (NEGATIVE); URINE GLUCOSE (UA) NEGATIVE (NEGATIVE); URINE LEUKOCYTE ESTERASE TRACE Leu/uL (NEGATIVE); URINE PROTEIN 30 mg/dL (<30 mg/dL); URINE UROBILINOGEN 0.2 E.U./dL (<1 E.U./dL)
[2018-03-02 03:12] LABS: URINE APPEARANCE SL CLOUDY (CLEAR); URINE COLOR YELLOW (YELLOW)
[2018-03-02 03:14] LABS: ALB/GLOB RATIO 1.2 (1.1-1.8); ALBUMIN 4.8 g/dL (3.0-4.8); ALT/SGPT 88 U/L (7-56); AST/SGOT 174 U/L (14-36); BLOOD UREA NITROGEN 14 mg/dL (7-21); CALCIUM 9.5 mg/dL (8.4-10.5); GFR NON-AFRICAN AMERICAN > 60
[2018-03-02 03:32] LABS: URINE BACTERIA OCC (NEG); URINE RBC 20 - 25 /hpf (0-2)
[2018-03-02 03:33] LABS: B-TYPE NATRIURETIC PEPTIDE 29.8 pg/mL (0-450); TROPONIN I 0.04 ng/mL
[2018-03-02 03:41] LABS: CK-MB 3.6 ng/mL (0.0-3.6)
[2018-03-02 03:41] LABS: BARBITURATES, UR POSITIVE (NEGATIVE); BENZODIAZEPINES, UR NEGATIVE (NEGATIVE); OPIATES, UR NEGATIVE (NEGATIVE); PHENCYCLIDINE, UR NEGATIVE (NEGATIVE)
[2018-03-02] MEDS ORDERED: Morphine 2 mg/ml ISec IVP STA ×2 (03:53→10:10)
[2018-03-02] MEDS ORDERED: Iodixanol 320 MG/ML 100 ML BOTTLE IV ONE (04:08)
[2018-03-02] MEDS ORDERED: Sodium Chloride 0.9% 1,000 ML IV SCH (06:30)
--- NOTE | 2018-03-02 06:33 | CP.PCM.HP ---
<Shanta Jones - Last Filed: 03/02/18 06:51> History of Present Illness - History of Present Illness History of Present Illness: PGY-3 H&P for hospiatlist service 32 yo female with PMH of HTN, asthma presents to ED for chest pain. Patient states that the pain started after she had syncopal episode. Patient states that yesterday she had a fainted and does not recall if she hit her head. Since the episode she reports intermittent left sided chest pain that radiated to the back. She reports associated nausea, left arm numbness and sob. She reports similar episode a few years ago when she was told she had high blood pressure. She states that she had stress test at the time but does not recall the results. 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 She also reports headache. She denies cough, abd pain, dysuria, lower extremity tenderness. 12 point ROS was negative except as stated. PMH: asthma, htn PSH: c section 2017, broken leg social history: smokes 5 cigarettes per week, social alcohol use, denies illicit drug use family history: father from unknown heart condition allergy: penicillins- rash Present on Admission - Present on Admission Any Indicators Present on Admission: No Review of Systems - Review of Systems All systems: reviewed and no additional remarkable complaints except Past Patient History - Infectious Disease Hx of Infectious Diseases: None - Past Social History Smoking Status: Light Smoker < 10 Cigarettes Daily - CARDIAC Hx Cardiac Disorders: Yes Hx Hypertension: Yes (noncompliant to meds) - PULMONARY Hx Respiratory Disorders: Yes Hx Asthma: Yes - PSYCHIATRIC Hx Substance Use: No - SURGICAL HISTORY Hx Section: Yes (x3) - ANESTHESIA Hx Anesthesia: Yes Hx Anesthesia Reactions: No Meds Allergies/Adverse Reactions: Allergies Allergy/AdvReac Type Severity Reaction Status Date / Time Penicillins Allergy RASH Verified 01/03/18 09:28 Physical Exam - Constitutional Appears: No Acute Distress - Head Exam Head Exam: ATRAUMATIC, NORMAL INSPECTION, NORMOCEPHALIC - Eye Exam Eye Exam: EOMI, Normal appearance. absent: Conjunctival injection, Periorbital swelling - ENT Exam ENT Exam: Mucous Membranes Moist, Normal External Ear Exam. absent: Mucous Membranes Dry - Respiratory Exam Respiratory Exam: Clear to Auscultation Bilateral, NORMAL BREATHING PATTERN. absent: Accessory Muscle Use, Decreased Breath Sounds, Rales, Rhonchi, Wheezes, Respiratory Distress - Cardiovascular Exam Cardiovascular Exam: REGULAR RHYTHM, RRR, +S1, +S2. absent: Bradycardia, Tachycardia, Diastolic murmur, Systolic Murmur - GI/Abdominal Exam GI & Abdominal Exam: Normal Bowel Sounds, Soft. absent: Diminished Bowel Sounds, Distended, Firm, Guarding, Tenderness - Extremities Exam Extremities exam: Positive for: normal inspection. Negative for: pedal edema, tenderness - Neurological Exam Neurological exam: Alert, Oriented x3 - Psychiatric Exam Psychiatric exam: Normal Affect, Normal Mood - Skin Skin Exam: Dry, Intact, Normal Color, Warm Results - Vital Signs Recent Vital Signs: Last Vital Signs Temp 98.6 F 03/02/18 01:50 Pulse 88 03/02/18 03:55 Resp 16 03/02/18 03:55 BP 142/78 03/02/18 03:55 Pulse Ox 100 03/02/18 03:55 - Labs Result Diagrams: 03/02/18 02:38 03/02/18 02:38 Labs: Laboratory Results - last 24 hr 03/02/18 03/02/18 03/02/18 02:38 02:38 02:38 WBC 5.1 RBC 4.28 Hgb 11.9 L Hct 37.4 MCV 87.4 MCH 27.8 MCHC 31.8 RDW 18.1 H Plt Count 242 MPV 8.4 Gran % 60.1 Lymph % (Auto) 32.3 [place] % (Auto) 7.4 H Eos % (Auto) 0.0 L Baso % (Auto) 0.2 Gran # 3.07 Lymph # (Auto) 1.7 [place] # (Auto) 0.4 Eos # (Auto) 0.0 Baso # (Auto) 0.01 D-Dimer, Quantitative 375 H Sodium 137 Potassium 4.7 Chloride 100 Carbon Dioxide 25 Anion Gap 16 BUN 14 Creatinine 0.8 Est GFR ( Amer) > 60 Est GFR (Non-Af Amer) > 60 Random Glucose 73 Calcium 9.5 Magnesium 1.8 Total Bilirubin 0.2 AST 174 H D ALT 88 H Alkaline Phosphatase 111 Lactate Dehydrogenase 806 H Total Creatine Kinase 396 H CK-MB (CK-2) 3.6 CK-MB (CK-2) % Cancelled Troponin I 0.04 D NT-Pro-B Natriuret Pep 29.8 Total Protein 8.7 H Albumin 4.8 Globulin 3.9 Albumin/Globulin Ratio 1.2 Urine Color Urine Appearance Urine pH Ur Specific [place] Urine Protein Urine Glucose (UA) Urine Ketones Urine Blood Urine Nitrate Urine Bilirubin Urine Urobilinogen Ur Leukocyte Esterase Urine RBC Urine WBC Ur Epithelial Cells Urine Bacteria Urine Opiates Screen Urine Methadone Screen Ur Barbiturates Screen Ur Phencyclidine Scrn Ur Amphetamines Screen U Benzodiazepines Scrn U Oth Cocaine Metabols U Cannabinoids Screen 03/02/18 03/02/18 02:49 02:49 WBC RBC Hgb Hct MCV MCH MCHC RDW Plt Count MPV Gran % Lymph % (Auto) [place] % (Auto) Eos % (Auto) Baso % (Auto) Gran # Lymph # (Auto) [place] # (Auto) Eos # (Auto) Baso # (Auto) D-Dimer, Quantitative Sodium Potassium Chloride Carbon Dioxide Anion Gap BUN Creatinine Est GFR ( Amer) Est GFR (Non-Af Amer) Random Glucose Calcium Magnesium Total Bilirubin AST ALT Alkaline Phosphatase Lactate Dehydrogenase Total Creatine Kinase CK-MB (CK-2) CK-MB (CK-2) % Troponin I NT-Pro-B Natriuret Pep Total Protein Albumin Globulin Albumin/Globulin Ratio Urine Color Yellow Urine Appearance Sl cloudy Urine pH 6.0 Ur Specific [place] >= 1.030 Urine Protein 30 H Urine Glucose (UA) Negative Urine Ketones 15 H Urine Blood Large H Urine Nitrate Negative Urine Bilirubin Negative Urine Urobilinogen 0.2 Ur Leukocyte Esterase Trace H Urine RBC 20 - 25 Urine WBC 1 - 3 Ur Epithelial Cells 3 - 4 Urine Bacteria Occ Urine Opiates Screen Negative Urine Methadone Screen Negative Ur Barbiturates Screen Positive H Ur Phencyclidine Scrn Negative Ur Amphetamines Screen Negative U Benzodiazepines Scrn Negative U Oth Cocaine Metabols Negative U Cannabinoids Screen Negative Assessment & Plan - Assessment and Plan (Free Text) Assessment: 32 yo female with PMH of HTN, asthma presents to ED for chest pain and syncopal episode found to have transaminitis. Plan: Chest pain - acs r/o - dimer elevated - CTA did not show PE or aortic dissection - first trop negative, will trend - will order TSH and lipid panel - echo ordered - cardiology consult syncopal episode with fall - CT head ordered - echo ordered - will start IVF due to elevated CK - neurology consulted - cardio consulted - fall precaution - neuro checks transaminitis - will follow up alcohol level - hepatitis panel - continue to monitor HTN - stable - continue home medication h/o asthma - duoneb prn GI ppx- pepcid DVT ppx- heparin case discussed and reviewed with attending, Dr. Pavon <Martha Pavon - Last Filed: 03/05/18 02:09> Results - Vital Signs Recent Vital Signs: Last Vital Signs Temp 98 F 03/04/18 09:07 Pulse 94 H 03/04/18 09:44 Resp 18 03/04/18 09:07 BP 165/110 H 03/04/18 09:44 Pulse Ox 96 03/04/18 09:07 - Labs Result Diagrams: 03/04/18 09:45 03/04/18 09:45 Labs: Laboratory Results - last 24 hr 03/03/18 03/04/18 03/04/18 06:00 09:45 09:45 WBC 2.9 L RBC 3.85 Hgb 10.7 L Hct 33.4 L MCV 86.8 MCH 27.8 MCHC 32.0 RDW 17.6 H Plt Count 158 MPV 8.5 Gran % 36.4 L Lymph % (Auto) 48.4 H [place] % (Auto) 13.9 H Eos % (Auto) 1.0 L Baso % (Auto) 0.3 Gran # 1.04 L Lymph # (Auto) 1.4 [place] # (Auto) 0.4 Eos # (Auto) 0.0 Baso # (Auto) 0.01 Sodium 136 Potassium 3.9 Chloride 104 Carbon Dioxide 27 Anion Gap 9 L BUN 7 Creatinine 0.6 L Est GFR ( Amer) > 60 Est GFR (Non-Af Amer) > 60 Random Glucose 92 Calcium 9.0 Total Bilirubin 0.2 AST 111 H D ALT 62 H Alkaline Phosphatase 76 Total Protein 7.1 Albumin 3.7 Globulin 3.4 Albumin/Globulin Ratio 1.1 HIV 1&2 Ag/Ab, 4th Gen Nonreactive Attending/Attestation - Attestation I have personally seen and examined this patient.: Yes I have fully participated in the care of the patient.: Yes I have reviewed all pertinent clinical information: Yes
[2018-03-02] MEDS ORDERED: Albuterol-Ipratrop 3 mg / 0.5 (3 ml) UD IH PRN (06:38)
--- NOTE | 2018-03-02 08:39 | RAD ---
Date of service: 03/02/2018 HISTORY: chest pain COMPARISON: Chest radiograph 07/03/2017. FINDINGS: LUNGS: No active pulmonary disease. PLEURA: No significant pleural effusion identified, no pneumothorax apparent. CARDIOVASCULAR: No aortic atherosclerotic calcification present. Normal cardiac size. No pulmonary vascular congestion. OSSEOUS STRUCTURES: No significant abnormalities. VISUALIZED UPPER ABDOMEN: Normal. OTHER FINDINGS: None. IMPRESSION: No interval acute cardiopulmonary disease appreciated.
--- NOTE | 2018-03-02 09:05 | CARD ---
APPROVED REPORT Date of service: 03/02/2018 EKG Measurement Heart [id number] <Conclusion> Sinus tachycardia Possible Left atrial enlargement LVH T wave abnormality, consider lateral ischemia Abnormal ECG
[2018-03-02 09:31] LABS: TROPONIN I 0.04 ng/mL
--- NOTE | 2018-03-02 09:36 | US ---
PROCEDURE: Bilateral carotid artery duplex ultrasound HISTORY: Carotid stenosis syncope PHYSICIAN(S): Parag Shine MD. TECHNIQUE: Duplex sonography and color-flow Doppler were used to evaluate the carotid bifurcations and limited segments of the vertebral arteries bilaterally. FINDINGS: There is minimal intimal-medial thickening noted at the carotid bifurcations bilaterally. The peak systolic velocity in the proximal right internal carotid artery is 61 cm/sec. This corresponds to a 0-19 percent proximal right ICA stenosis. Normal systolic velocities are noted in the proximal right external carotid artery. There is antegrade flow in the right vertebral artery. The peak systolic velocity in the proximal left internal carotid artery is 69 cm/sec. This corresponds to a 0-19 percent proximal left ICA stenosis. Normal systolic velocities are noted in the proximal left external carotid artery. There is antegrade flow in the left vertebral artery. IMPRESSION: 1. Bilateral 0-19 percent proximal ICA stenoses. 2. Antegrade flow in both vertebral arteries.
--- NOTE | 2018-03-02 11:28 | CT ---
Date of service: 03/02/2018 PROCEDURE: CT HEAD WITHOUT CONTRAST. HISTORY: fall COMPARISON: None available. TECHNIQUE: Axial computed tomography images were obtained through the head/brain without intravenous contrast. Radiation dose: Total exam DLP = 821.13 mGy-cm. This CT exam was performed using one or more of the following dose reduction techniques: Automated exposure control, adjustment of the mA and/or kV according to patient size, and/or use of iterative reconstruction technique. FINDINGS: HEMORRHAGE: No intracranial hemorrhage. BRAIN: Normal dumas-white matter differentiation and density are appreciated throughout the cerebrum and cerebellum with the brainstem appearing unremarkable as well. There is no mass effect. There is no suspicious extra-axial fluid collection and the midline brain anatomy appears diffusely unremarkable. VENTRICLES: Unremarkable. No hydrocephalus. CALVARIUM: No destructive bony lesion or displaced fracture identified including through the skullbase. PARANASAL SINUSES: Unremarkable as visualized. No significant inflammatory changes. MASTOID AIR CELLS: Unremarkable as visualized. No inflammatory changes. OTHER FINDINGS: None. IMPRESSION: Unremarkable unenhanced head CT. Concordant preliminary report from [place], 03/02/2018 at 7:14 a.m..
--- NOTE | 2018-03-02 11:30 | CT ---
Date of service: 03/02/2018 PROCEDURE: CT Chest with contrast (Pulmonary Angiogram) HISTORY: SOB w/chest pain, elevated D-dimer COMPARISON: None available. TECHNIQUE: Axial computed tomography images were obtained of the chest in the pulmonary arterial phase of enhancement. Coronal and sagittal reformatted images were created and reviewed. Intravenous contrast dose: 100 cc Visipaque 320. Mean Hounsfield value in the main pulmonary artery: 322.05 Radiation dose: Total exam DLP = <inf_radiation_dlp> mGy-cm. This CT exam was performed using one or more of the following dose reduction techniques: Automated exposure control, adjustment of the mA and/or kV according to patient size, and/or use of iterative reconstruction technique. FINDINGS: PULMONARY ARTERIES: Unremarkable. No pulmonary embolism. AORTA: No acute findings. No thoracic aortic aneurysm. No atherosclerotic calcification or mural plaque present. LUNGS: Unremarkable. No nodule, mass or pulmonary consolidation. PLEURAL SPACES: Unremarkable. No effusion or pneumothorax. HEART: Unremarkable. No cardiomegaly. No significant pericardial effusion. LYMPH NODES: No lymphadenopathy. BONES, CHEST WALL: Unremarkable. No fracture or destructive lesion OTHER FINDINGS: Unremarkable. IMPRESSION: Unremarkable CT pulmonary angiogram. No pulmonary embolus. Concordant results (preliminary interpretation) provided by [employer]. Procedure Completed: 04:20 Preliminary Report: Dictated and Authenticated: 05:52. Final Interpretation: 11:27. Is
[2018-03-02 12:25] VITALS: BMI 20.7
[2018-03-02 12:32] LABS: HEPATITIS B SURFACE AG Negative (NEGATIVE)
[2018-03-02 12:39] LABS: HEPATITIS A IGM NEGATIVE (NEGATIVE); HEPATITIS B CORE AB NEGATIVE (NEGATIVE)
[2018-03-02 12:50] LABS: HEPATITIS C ANTIBODY NEGATIVE (NEGATIVE)
--- NOTE | 2018-03-02 14:47 | CP.PCM.CON ---
History of Present Illness - History of Present Illness History of Present Illness: Neurology Consult Note for Dr. Baumann Reason for consultation: Syncope Patient is a 32 yo F with PMH of HTN and asthma presents to [facility] due to chest pain preceded by dizziness and near syncope. Patient states that she was lying in bed yesterday when she began to feel dizzy, which was exacerbated when she sat up too quickly. Patient states that it felt like the room was spinning. Patient denies any LOC, fall, or trauma. She reports a similar episode a few years ago. Patient denies SOB, cough, n/v/d, abdominal pain, fever, chills, or LEON. PMH: asthma, htn PSH: c section 2017, broken leg social history: smokes 5 cigarettes per week, social alcohol use, denies illicit drug use family history: Lupus allergy: penicillins- rash Review of Systems - Review of Systems All systems: reviewed and no additional remarkable complaints except (12 point ROS reviewed and is negative other than what is stated in HPI.) Past Patient History - Infectious Disease Hx of Infectious Diseases: None - Past Social History Smoking Status: Current Some Days Smoker - CARDIAC Hx Cardiac Disorders: Yes Hx Hypercholesterolemia: Yes Hx Hypertension: Yes - PULMONARY Hx Respiratory Disorders: Yes Hx Asthma: Yes - NEUROLOGICAL Hx Neurological Disorder: No - HEENT Hx HEENT Problems: No - RENAL Hx Chronic Kidney Disease: No - ENDOCRINE/METABOLIC Hx Endocrine Disorders: No - HEMATOLOGICAL/ONCOLOGICAL Hx Blood Disorders: No - INTEGUMENTARY Hx Dermatological Problems: Yes Hx Eczema: Yes - MUSCULOSKELETAL/RHEUMATOLOGICAL Hx Musculoskeletal Disorders: No Hx Falls: Yes - GASTROINTESTINAL Hx Gastrointestinal Disorders: No - GENITOURINARY/GYNECOLOGICAL Hx Genitourinary Disorders: No - PSYCHIATRIC Hx Psychophysiologic Disorder: No - SURGICAL HISTORY Hx Surgeries: Yes Other/Comment: C-Sections x3 (2017, 2006, 2004) - ANESTHESIA Hx Anesthesia: Yes Hx Anesthesia Reactions: No Meds Allergies/Adverse Reactions: Allergies Allergy/AdvReac Type Severity Reaction Status Date / Time Penicillins Allergy RASH Verified 01/03/18 09:28 - Medications Medications: Current Medications Albuterol/Ipratropium (Duoneb 3 Mg/0.5 Mg (3 Ml) Ud) 3 ml IH [id number] PRN PRN Reason: Shortness of Breath Famotidine (Pepcid) 20 mg PO 1000,2200 [facility] Last Admin: 03/02/18 10:29 Dose: 20 mg Heparin Sodium (Porcine) (Heparin) 5,000 units SC Q8 [facility]; Protocol Sodium Chloride (Sodium Chloride 0.9%) 1,000 mls @ 100 mls/hr IV .Q10H [facility] Stop: 03/02/18 16:29 Last Admin: 03/02/18 06:59 Dose: 100 mls/hr Lisinopril (Zestril) 20 mg PO BID [facility] Metoprolol Tartrate (Lopressor) 12.5 mg PO BID [facility] Ondansetron HCl (Zofran Inj) 4 mg IVP Q6H PRN PRN Reason: Nausea/Vomiting Last Admin: 03/02/18 11:54 Dose: 4 mg Physical Exam - Constitutional Appears: No Acute Distress - Head Exam Head Exam: NORMAL INSPECTION - Eye Exam Eye Exam: Normal appearance - ENT Exam ENT Exam: Mucous Membranes Moist, Normal Exam - Neck Exam Neck exam: Positive for: Normal Inspection - Respiratory Exam Respiratory Exam: Clear to Auscultation Bilateral, NORMAL BREATHING PATTERN - Cardiovascular Exam Cardiovascular Exam: REGULAR RHYTHM - GI/Abdominal Exam GI & Abdominal Exam: Normal Bowel Sounds, Soft - Extremities Exam Extremities exam: Positive for: normal inspection - Back Exam Back exam: NORMAL INSPECTION - Neurological Exam Neurological exam: Alert, CN II-XII Intact, Normal Gait, Oriented x3 Additional comments: no nystagmus - Skin Skin Exam: Normal Color Results - Vital Signs Recent Vital Signs: Last Vital Signs Temp 98.6 F 03/02/18 01:50 Pulse 105 H 03/02/18 12:05 Resp 16 03/02/18 12:05 BP 195/105 H 03/02/18 10:27 Pulse Ox 98 03/02/18 09:31 - Labs Result Diagrams: 03/02/18 02:38 03/02/18 02:38 Labs: Laboratory Results - last 24 hr 03/02/18 03/02/18 03/02/18 02:38 02:38 02:38 WBC 5.1 RBC 4.28 Hgb 11.9 L Hct 37.4 MCV 87.4 MCH 27.8 MCHC 31.8 RDW 18.1 H Plt Count 242 MPV 8.4 Gran % 60.1 Lymph % (Auto) 32.3 [place] % (Auto) 7.4 H Eos % (Auto) 0.0 L Baso % (Auto) 0.2 Gran # 3.07 Lymph # (Auto) 1.7 [place] # (Auto) 0.4 Eos # (Auto) 0.0 Baso # (Auto) 0.01 D-Dimer, Quantitative 375 H Sodium 137 Potassium 4.7 Chloride 100 Carbon Dioxide 25 Anion Gap 16 BUN 14 Creatinine 0.8 Est GFR ( Amer) > 60 Est GFR (Non-Af Amer) > 60 Random Glucose 73 Calcium 9.5 Magnesium 1.8 Total Bilirubin 0.2 AST 174 H D ALT 88 H Alkaline Phosphatase 111 Lactate Dehydrogenase 806 H Total Creatine Kinase 396 H CK-MB (CK-2) 3.6 CK-MB (CK-2) % Cancelled Troponin I 0.04 D NT-Pro-B Natriuret Pep 29.8 Total Protein 8.7 H Albumin 4.8 Globulin 3.9 Albumin/Globulin Ratio 1.2 Triglycerides Cholesterol LDL Cholesterol Direct HDL Cholesterol TSH 3rd Generation Urine Color Urine Appearance Urine pH Ur Specific [place] Urine Protein Urine Glucose (UA) Urine Ketones Urine Blood Urine Nitrate Urine Bilirubin Urine Urobilinogen Ur Leukocyte Esterase Urine RBC Urine WBC Ur Epithelial Cells Urine Bacteria Urine Opiates Screen Urine Methadone Screen Ur Barbiturates Screen Ur Phencyclidine Scrn Ur Amphetamines Screen U Benzodiazepines Scrn U Oth Cocaine Metabols U Cannabinoids Screen Alcohol, Quantitative Hepatitis A IgM Ab Hep Bs Antigen Hep B Core IgM Ab Hepatitis C Antibody 03/02/18 03/02/18 03/02/18 02:38 02:49 02:49 WBC RBC Hgb Hct MCV MCH MCHC RDW Plt Count MPV Gran % Lymph % (Auto) [place] % (Auto) Eos % (Auto) Baso % (Auto) Gran # Lymph # (Auto) [place] # (Auto) Eos # (Auto) Baso # (Auto) D-Dimer, Quantitative Sodium Potassium Chloride Carbon Dioxide Anion Gap BUN Creatinine Est GFR ( Amer) Est GFR (Non-Af Amer) Random Glucose Calcium Magnesium Total Bilirubin AST ALT Alkaline Phosphatase Lactate Dehydrogenase Total Creatine Kinase CK-MB (CK-2) CK-MB (CK-2) % Troponin I NT-Pro-B Natriuret Pep Total Protein Albumin Globulin Albumin/Globulin Ratio Triglycerides Cholesterol LDL Cholesterol Direct HDL Cholesterol TSH 3rd Generation Urine Color Yellow Urine Appearance Sl cloudy Urine pH 6.0 Ur Specific [place] >= 1.030 Urine Protein 30 H Urine Glucose (UA) Negative Urine Ketones 15 H Urine Blood Large H Urine Nitrate Negative Urine Bilirubin Negative Urine Urobilinogen 0.2 Ur Leukocyte Esterase Trace H Urine RBC 20 - 25 Urine WBC 1 - 3 Ur Epithelial Cells 3 - 4 Urine Bacteria Occ Urine Opiates Screen Negative Urine Methadone Screen Negative Ur Barbiturates Screen Positive H Ur Phencyclidine Scrn Negative Ur Amphetamines Screen Negative U Benzodiazepines Scrn Negative U Oth Cocaine Metabols Negative U Cannabinoids Screen Negative Alcohol, Quantitative 163 H Hepatitis A IgM Ab Hep Bs Antigen Hep B Core IgM Ab Hepatitis C Antibody 03/02/18 03/02/18 03/02/18 08:50 08:50 08:50 WBC RBC Hgb Hct MCV MCH MCHC RDW Plt Count MPV Gran % Lymph % (Auto) [place] % (Auto) Eos % (Auto) Baso % (Auto) Gran # Lymph # (Auto) [place] # (Auto) Eos # (Auto) Baso # (Auto) D-Dimer, Quantitative Sodium Potassium Chloride Carbon Dioxide Anion Gap BUN Creatinine Est GFR ( Amer) Est GFR (Non-Af Amer) Random Glucose Calcium Magnesium Total Bilirubin AST ALT Alkaline Phosphatase Lactate Dehydrogenase Total Creatine Kinase CK-MB (CK-2) CK-MB (CK-2) % Troponin I 0.04 NT-Pro-B Natriuret Pep Total Protein Albumin Globulin Albumin/Globulin Ratio Triglycerides 242 H Cholesterol 234 H LDL Cholesterol Direct 100 HDL Cholesterol 93 H TSH 3rd Generation 1.68 Urine Color Urine Appearance Urine pH Ur Specific [place] Urine Protein Urine Glucose (UA) Urine Ketones Urine Blood Urine Nitrate Urine Bilirubin Urine Urobilinogen Ur Leukocyte Esterase Urine RBC Urine WBC Ur Epithelial Cells Urine Bacteria Urine Opiates Screen Urine Methadone Screen Ur Barbiturates Screen Ur Phencyclidine Scrn Ur Amphetamines Screen U Benzodiazepines Scrn U Oth Cocaine Metabols U Cannabinoids Screen Alcohol, Quantitative Hepatitis A IgM Ab Negative Hep Bs Antigen Negative Hep B Core IgM Ab Negative Hepatitis C Antibody Negative Assessment & Plan - Assessment and Plan (Free Text) Assessment: 32 yo F with PMH of HTN and asthma presents to [facility] for chest pain and near- syncope. Plan: - CTA chest negative - Head CT negative - Lupus anticoagulant ordered due to h/o lupus in family Patient seen and discussed in detail with Dr. Baumann. Preston Haskins, DO PGY2
--- NOTE | 2018-03-02 15:34 | CON ---
DATE: 03/02/2018 CARDIOLOGY CONSULTATION HISTORY: The patient is a 32-year-old woman, who presented with a syncopal episode yesterday. She now complains of intermittent chest discomfort, which is atypical. The patient's past medical history includes asthma. She is also on multiple medications for hypertension. The description of her symptoms was sharp and located in the left chest and tends to be focal. The pain has a pleuritic nature and is increased with inspiration. PAST MEDICAL HISTORY: Past medical history includes hypertension, is on multiple medications. No previous cardiac history. No diabetes mellitus. SOCIAL HISTORY: The patient does not smoke. She denies drug use. REVIEW OF SYSTEMS: Fourteen-point review of systems is reviewed in detail. No cardiac symptoms are noted. PHYSICAL EXAMINATION: GENERAL: On physical exam, the patient is in no acute distress. VITAL SIGNS: Blood pressure went from (195-130). NECK: Negative JVD. LUNGS: Without rales. HEART: With S1, S2. EXTREMITIES: Without edema. DIAGNOSTIC DATA: EKG shows sinus tachycardia, LVH, and nonspecific ST-T changes. LABORATORY DATA: Hemoglobin is 11.9. Chemistries: BUN and creatinine, unremarkable. Troponins are 0.04 and 0.04. CPK is elevated. IMPRESSION: 1. History of syncope. 2. Question whether the patient sustained any chest wall trauma from her fall. 3. Elevated troponins with no evidence for acute coronary syndrome. 4. History of hypertension. 5. Elevated CPK. PLAN: Given these findings, the patient will obtain an echocardiogram. In addition, we will put the patient back on her EMORY inhibitor for better blood pressure control. Parag Marquez MD [facility] # [phone]
--- NOTE | 2018-03-02 17:47 | CARD ---
APPROVED REPORT Date of service: 03/02/2018 EXAM: Two-dimensional and M-mode echocardiogram with Doppler and color Doppler. INDICATION Chest Pain 2D DIMENSIONS Left Atrium (2D)3.3 (1.6-4.0cm)IVSd1.1 (0.7-1.1cm) LVDd3.8 (3.9-5.9cm)PWd0.9 (0.7-1.1cm) LVDs2.5 (2.5-4.0cm)FS (%) 34.5 % LVEF (%)64.3 (>50%) M-Mode DIMENSIONS Aortic Root2.40 (2.2-3.7cm)Aortic Cusp Exc.1.50 (1.5-2.0cm) Aortic Valve AoV Peak Bkcdmgkz108.0cm/Taryn Peak GR.15mmHg Mitral Valve MV E Mmxeikek80.2cm/sMV A Fcuhohzb66.5cm/sE/A ratio0.9 TDI E/Lateral E'0.0E/Medial E'0.0 Tricuspid Valve TR Peak [id number]/sRAP [id number] Peak Gr.13mmHg [id number] LEFT VENTRICLE The left ventricle is normal size. There is normal left ventricular wall thickness. The left ventricular function is normal. The left ventricular ejection fraction is within the normal range. There is normal LV segmental wall motion. Transmitral Doppler flow pattern is abnormal. RIGHT VENTRICLE The right ventricle is normal size. There is normal right ventricular wall thickness. The right ventricular systolic function is normal. ATRIA The left atrium size is normal. The right atrium size is normal. AORTIC VALVE The aortic valve is not well visualized. There is trace aortic regurgitation. MITRAL VALVE The mitral valve is normal in structure. There is no mitral valve regurgitation noted. There is no mitral valve stenosis. TRICUSPID VALVE There is mild tricuspid regurgitation. PULMONIC VALVE There is mild pulmonic valvular regurgitation. GREAT VESSELS The aortic root is normal in size. The IVC is normal in size and collapses >50% with inspiration. <Conclusion> The left ventricle is normal size. There is normal left ventricular wall thickness. The left ventricular function is normal. The left ventricular ejection fraction is within the normal range. There is normal LV segmental wall motion. There is trace aortic regurgitation. There is mild tricuspid regurgitation.
--- NOTE | 2018-03-02 19:03 | CARD ---
APPROVED REPORT Date of service: 03/02/2018 EKG Measurement Heart [id number] <Conclusion> Sinus tachycardia Possible Left atrial enlargement T wave abnormality, consider anterolateral ischemia Abnormal ECG
[2018-03-02 21:34] LABS: URINE BILIRUBIN MODERATE (NEGATIVE); URINE BLOOD MODERATE (NEGATIVE); URINE GLUCOSE (UA) NEGATIVE (NEGATIVE); URINE LEUKOCYTE ESTERASE NEGATIVE Leu/uL (NEGATIVE); URINE PROTEIN TRACE mg/dL (<30 mg/dL); URINE UROBILINOGEN 0.2 E.U./dL (<1 E.U./dL)
[2018-03-02 21:38] LABS: URINE APPEARANCE TURBID (CLEAR); URINE COLOR YELLOW (YELLOW)
[2018-03-02 21:39] LABS: URINE RBC 0 - 2 /hpf (0-2); URINE WBC 0 - 2 /hpf (0-6)
[2018-03-03 07:13] LABS: EOS % 0.4 % (1.5-5.0); GRAN # 1.01 (1.4-6.5); GRAN % 40.4 % (50.0-68.0); HEMOGLOBIN 10.1 g/dL (12.0-16.0); LYMPH # 1.2 (1.2-3.4); MEAN CELL VOLUME 86.9 fl (80.0-105.0); MEAN CORPUSCULAR HEMOGLOBIN 27.5 pg (25.0-35.0); MEAN CORPUSCULAR HGB CONC 31.7 g/dl (31.0-37.0); MEAN PLATELET VOLUME 8.6 fl (7.0-11.0); MONO # 0.3 (0.1-0.6); MONO % 13.2 % (1.0-6.0); RBC 3.67 10^6/uL (3.5-6.1); RED CELL DISTRIBUTION WIDTH 17.8 % (11.5-14.5); WHITE BLOOD COUNT 2.5 10^3/uL (4.5-11.0)
[2018-03-03 07:27] LABS: ALB/GLOB RATIO 1.1 (1.1-1.8); ALBUMIN 3.4 g/dL (3.0-4.8); ALT/SGPT 66 U/L (7-56); AST/SGOT 91 U/L (14-36); BLOOD UREA NITROGEN 10 mg/dL (7-21); CALCIUM 8.7 mg/dL (8.4-10.5); GFR NON-AFRICAN AMERICAN > 60
--- NOTE | 2018-03-03 15:27 | CP.PCM.PN ---
<Taco Muniz - Last Filed: 03/03/18 15:24> Subjective - Date & Time of Evaluation Date of Evaluation: 03/03/18 Time of Evaluation: 15:24 - Subjective Subjective: Taco Muniz, PGY-1, Internal Medicine Progress Note for Dr. Bonilla Patient seen and evaluated at bedside. Patient reported hematuria yesterday and overnight. Patient showed me basin with hematuria and urine was dark red with no clots. Patient reports bilateral flank pain that has been present for 3-4 days. Patient reports improvement of chest pain radiating to back, left arm numbness, and nausea after CIWA protocol was initiated and patient was given ativan. Patient reports bilateral groin pain, as well. Patient has a generalized body ache, as well. 12-point ROS was negative except for what was mentioned above. Objective - Vital Signs/Intake and Output Vital Signs (last 24 hours): Temp Pulse Resp BP Pulse Ox 99.6 F 91 H 18 151/90 H 99 03/03/18 08:18 03/03/18 10:00 03/03/18 08:18 03/03/18 09:59 03/03/18 08:18 Intake and Output: 03/03/18 03/03/18 06:59 18:59 Intake Total 240 Output Total 400 Balance -160 - Medications Medications: Current Medications Acetaminophen (Tylenol 325mg Tab) 650 mg PO Q6H PRN PRN Reason: Fever >100.4 F Last Admin: 03/02/18 17:12 Dose: 650 mg Albuterol/Ipratropium (Duoneb 3 Mg/0.5 Mg (3 Ml) Ud) 3 ml IH [id number] PRN PRN Reason: Shortness of Breath Aspirin (Aspirin Chewable) 81 mg PO DAILY [facility] Last Admin: 03/03/18 09:56 Dose: 81 mg Famotidine (Pepcid) 20 mg PO 1000,2200 [facility] Last Admin: 03/03/18 09:59 Dose: 20 mg Heparin Sodium (Porcine) (Heparin) 5,000 units SC Q8 [facility]; Protocol Last Admin: 03/03/18 14:02 Dose: Not Given Hydralazine HCl (Apresoline) 10 mg PO Q6H PRN PRN Reason: Systolic Blood Pressure Lisinopril (Zestril) 20 mg PO BID [facility] Last Admin: 03/03/18 09:59 Dose: 20 mg Lorazepam (Ativan) 1 mg IVP Q4H PRN; Protocol PRN Reason: Symptoms of alcohol withdrawl Lorazepam (Ativan) 1 mg IVP Q6 [facility]; Protocol Last Admin: 03/03/18 12:11 Dose: 1 mg Metoprolol Tartrate (Lopressor) 12.5 mg PO BID [facility] Last Admin: 03/03/18 09:58 Dose: 12.5 mg Ondansetron HCl (Zofran Inj) 4 mg IVP Q6H PRN PRN Reason: Nausea/Vomiting Last Admin: 03/02/18 11:54 Dose: 4 mg - Labs Labs: 03/03/18 05:45 03/03/18 05:45 - Constitutional Appears: Well, Unkempt - Head Exam Head Exam: ATRAUMATIC, NORMAL INSPECTION, NORMOCEPHALIC - Eye Exam Eye Exam: EOMI Pupil Exam: PERRL - Respiratory Exam Respiratory Exam: Clear to Ausculation Bilateral, NORMAL BREATHING PATTERN - Cardiovascular Exam Cardiovascular Exam: REGULAR RHYTHM - GI/Abdominal Exam GI & Abdominal Exam: Soft, Tenderness, Normal Bowel Sounds - Extremities Exam Extremities Exam: Full ROM - Back Exam Back Exam: CVA tenderness (L), CVA tenderness (R) - Neurological Exam Neurological Exam: Alert, Awake, CN II-XII Intact - Skin Skin Exam: Dry, Intact, Normal Color Assessment and Plan - Assessment and Plan (Free Text) Assessment: 32 year old female with past medical history of hypertension and asthma presented with left sided chest pain that started after a syncopal episode at home the day before she arrived at the emergency department. Patient reports she hit her head during her fall. Patient had a similar episode when her blood pressure was elevated. Initial EKG showed sinus tachycardia with possible left atrial enlargement and LVH with HR of 106. Repeat EKG was consistent with prior findings. Echocardiogram showed LVEF of 64.3%. Study was otherwise unremarkable. Patient had unremarkable Chest X ray, Chest CT, and Head CT. Bilateral carotid ultrasound showed bilateral 0-19 percent proximal ICA stenoses. Plan: Chest pain 2/2 to ACS vs. panic attack vs. costochondritis. Doubt PE, aortic dissection -Initial EKG showed sinus tachycardia with possible left atrial enlargement and LVH with HR of 106. Repeat EKG was consistent with prior findings. -Echocardiogram showed LVEF of 64.3%. Study was otherwise unremarkable. -Troponinx3: negative -D-Dimer: elevated. Confirmatory CTA was negative for PE -TSH: unremarkable -Triglycerides: 242, Cholesterol: 234, LDL: 100, HDL: 93 -Continue with aspirin, lisinopril. -Heart healthy diet. -At this point, doubt ACS based off of imaging and labs. Patient was started on CIWA protocol and patient's chest pain symptoms improved -Patient is currently on ativan 1 mg Q6 and 1 mg Q4PRN for agitation and withdrawal symptoms -Dr. Marquez, Cardiology, consulted for recommendations. Hematuria 2/2 to UTI vs. pyelonephritis vs. doubt ectopic or menstruation -Urinanalysis: trace protein, 40 ketones, moderate blood, moderate bilirubin, 0- 2 RBC, 0-2 WBC, 4-5 epithelial cells -Follow up Abdominal CT results -Urology, Dr. Ricci, consulted for recommendations. Syncope with Head Trauma likely 2/2 to hypertension -History of syncope with elevated blood pressure. -Bilateral carotid ultrasound showed bilateral 0-19 percent proximal ICA stenoses unlikely the cause of syncope -Head CT shows no evidence of trauma or hematoma -Syncope likely due to uncontrolled hypertension -Blood pressure has ranged from 142/78 to 195/105 -Continue with apresoline, lopressor, zestril. Alcohol withdrawal -CIWA protocol initiated since patient's alcohol level was 163 on admission. -CIWA score<8 -AST/ALT was 174/88 on admission. AST/ALT is trending down to 91/66 today. -Possible attributing to patient's symptoms -Patient's symptoms relieved with ativan -Alcohol cessation counseling -Continue ativan 1 mg Q4, ativan 1 mg Q6PRN for withdrawal symptoms History of Hypertension and Tachycardia -Blood pressure has ranged from 142/78 to 195/105 -Continue with apresoline, lopressor, zestril. Polysubstance abuse -UDS positive for barbiturates -Possible that withdrawal is causing patient to have symptoms of diffuse body aches -Monitor for withdrawal symptoms History of Asthma -Duonebs PRN History of Lupus Anticoagulant -Lupus anticoagulant ordered due to history of lupus in family GI prophylaxis: pepcid 20 mg BID DVT prophylaxis: heparin 5000 U Q8 Patient plan discussed with Dr. Bonilla. <Huber Bonilla - Last Filed: 03/03/18 19:27> Objective - Vital Signs/Intake and Output Vital Signs (last 24 hours): Temp Pulse Resp BP Pulse Ox 99.2 F 97 H 18 160/90 H 99 03/03/18 16:16 18 17:38 03/03/18 16:16 18 17:38 03/03/18 16:16 Intake and Output: 03/03/18 03/04/18 18:59 06:59 Intake Total 1800 Output Total 400 Balance 1400 - Medications Medications: Current Medications Acetaminophen (Tylenol 325mg Tab) 650 mg PO Q6H PRN PRN Reason: Fever >100.4 F Last Admin: 03/02/18 17:12 Dose: 650 mg Albuterol/Ipratropium (Duoneb 3 Mg/0.5 Mg (3 Ml) Ud) 3 ml IH [id number] PRN PRN Reason: Shortness of Breath Aspirin (Aspirin Chewable) 81 mg PO DAILY [facility] Last Admin: 03/03/18 09:56 Dose: 81 mg Famotidine (Pepcid) 20 mg PO 1000,2200 [facility] Last Admin: 03/03/18 09:59 Dose: 20 mg Heparin Sodium (Porcine) (Heparin) 5,000 units SC Q8 [facility]; Protocol Last Admin: 03/03/18 14:02 Dose: Not Given Hydralazine HCl (Apresoline) 10 mg PO Q6H PRN PRN Reason: Systolic Blood Pressure Lisinopril (Zestril) 20 mg PO BID [facility] Last Admin: 03/03/18 17:38 Dose: 20 mg Lorazepam (Ativan) 1 mg IVP Q4H PRN; Protocol PRN Reason: Symptoms of alcohol withdrawl Lorazepam (Ativan) 1 mg IVP Q6 [facility]; Protocol Last Admin: 03/03/18 17:37 Dose: 1 mg Metoprolol Tartrate (Lopressor) 12.5 mg PO BID [facility] Last Admin: 03/03/18 17:38 Dose: 12.5 mg Ondansetron HCl (Zofran Inj) 4 mg IVP Q6H PRN PRN Reason: Nausea/Vomiting Last Admin: 03/02/18 11:54 Dose: 4 mg - Labs Labs: 03/03/18 05:45 03/03/18 05:45 Attending/Attestation - Attestation I have personally seen and examined this patient.: Yes I have fully participated in the care of the patient.: Yes I have reviewed all pertinent clinical information, including history, physical exam and plan: Yes Notes (Text): Chest Pain Hematuria EtOH withdrawal Polysubstance abuse HTN Trop and EKG remained negative. Chest pain could be 2/2 elevated BP and anxiety Cardio on board. Echo findings as above c/w CIWA pt noted to have hematuria with right flank pain. Will get CT abd/pel and consult urology. Will hold ASA for now due to hematuria c/w BP meds and adjust as needed
--- NOTE | 2018-03-03 15:36 | CT ---
Date of service: 03/03/2018 PROCEDURE: CT Abdomen and Pelvis without intravenous contrast HISTORY: Abdominal pain COMPARISON: 01/03/2018. TECHNIQUE: CT scan of the abdomen and pelvis was performed without administration of intravenous contrast. Oral contrast was not administered. Coronal and sagittal reformatted images were obtained. . Radiation dose: Total exam DLP = 200.39 mGy-cm. This CT exam was performed using one or more of the following dose reduction techniques: Automated exposure control, adjustment of the mA and/or kV according to patient size, and/or use of iterative reconstruction technique. FINDINGS: LOWER THORAX: The visualized lungs are clear. LIVER: Moderate hepatomegaly and fatty liver. No intrahepatic ductal dilatation. GALLBLADDER AND BILE DUCTS: No calcified gallstones. No biliary dilatation PANCREAS: Normal in size. No ductal dilatation. SPLEEN: Normal in size. ADRENALS: Normal in size. No discrete nodule. KIDNEYS AND URETERS: Normal in size without nephrolithiasis. No hydronephrosis. VASCULATURE: No aortic aneurysm. No aortic atherosclerotic calcification or mural plaque present. BOWEL: The small bowel loops are normal in caliber. The colon is normal in size. No bowel dilatation or wall thickening. No bowel obstruction. APPENDIX: Not distinctly identified. However there are no inflammatory changes in the right lower PERITONEUM: There is a small amount of free fluid in the pelvis which may be physiologic. No free air. LYMPH NODES: No enlarged lymph nodes. BLADDER: Well distended and grossly normal in appearance. REPRODUCTIVE: The uterus is normal in size BONES: No acute fracture. OTHER FINDINGS: None. IMPRESSION: No acute abdominal or pelvic abnormality. Mild hepatomegaly and fatty liver.
--- NOTE | 2018-03-03 19:20 | PN ---
DATE: 03/03/2018 CARDIOLOGY FOLLOWUP SUBJECTIVE: The patient is chest pain free and she is down for abdominal CT scan because of complaint of abdominal pain. PHYSICAL EXAMINATION: VITAL SIGNS: Blood pressure is 151/90, heart rate is in the 90s. NECK: Negative JVD. LUNGS: Without rales. HEART: S1, S2. EXTREMITIES: Without edema. LABORATORY DATA: BUN and creatinines are unremarkable. Her liver function tests are coming down as well as her total CPK, the troponin is 0.02, cholesterol is 234. Her echocardiogram shows no LV outflow obstruction. Her carotid arteries are unremarkable. ASSESSMENT AND PLAN: 1. Given these findings, the patient's syncope cannot be explained from a cardiac cause. 2. Her chest pain reveals no acute coronary syndrome. We will discontinue telemetry today. Given her history of chest pain, we will arrange for an outpatient stress test which we will schedule in the next week, once her hospital workup is done. Parag Marquez MD
[2018-03-04 09:08] VITALS: RESP 18; TEMP 98; O2SAT 96
[2018-03-04 09:48] VITALS: BP 165/110; PULSE 94
[2018-03-04 09:56] LABS: BASO # 0.01 K/mm3 (0.0-2.0); BASO % 0.3 % (0.0-3.0); GRAN # 1.04 (1.4-6.5); GRAN % 36.4 % (50.0-68.0); HEMOGLOBIN 10.7 g/dL (12.0-16.0); LYMPH # 1.4 (1.2-3.4); LYMPH % 48.4 % (22.0-35.0); MEAN CELL VOLUME 86.8 fl (80.0-105.0); MEAN CORPUSCULAR HEMOGLOBIN 27.8 pg (25.0-35.0); MEAN PLATELET VOLUME 8.5 fl (7.0-11.0); MONO # 0.4 (0.1-0.6); MONO % 13.9 % (1.0-6.0); RBC 3.85 10^6/uL (3.5-6.1); RED CELL DISTRIBUTION WIDTH 17.6 % (11.5-14.5); WHITE BLOOD COUNT 2.9 10^3/uL (4.5-11.0)
[2018-03-04 10:08] LABS: ALB/GLOB RATIO 1.1 (1.1-1.8); ALBUMIN 3.7 g/dL (3.0-4.8); ALT/SGPT 62 U/L (7-56); AST/SGOT 111 U/L (14-36); BLOOD UREA NITROGEN 7 mg/dL (7-21); GFR NON-AFRICAN AMERICAN > 60
--- NOTE | 2018-03-04 11:43 | PCM.URO ---
Urology Progress Note - Objective Lab Studies: Reviewed (dx: abd pain gu plans: no intervention needed out pt follow up // reconsult as needed full note dictated thanks) Lab Results Last 24 Hours: Laboratory Results - last 24 hr 03/03/18 03/04/18 03/04/18 06:00 09:45 09:45 WBC 2.9 L RBC 3.85 Hgb 10.7 L Hct 33.4 L MCV 86.8 MCH 27.8 MCHC 32.0 RDW 17.6 H Plt Count 158 MPV 8.5 Gran % 36.4 L Lymph % (Auto) 48.4 H [place] % (Auto) 13.9 H Eos % (Auto) 1.0 L Baso % (Auto) 0.3 Gran # 1.04 L Lymph # (Auto) 1.4 [place] # (Auto) 0.4 Eos # (Auto) 0.0 Baso # (Auto) 0.01 Sodium 136 Potassium 3.9 Chloride 104 Carbon Dioxide 27 Anion Gap 9 L BUN 7 Creatinine 0.6 L Est GFR ( Amer) > 60 Est GFR (Non-Af Amer) > 60 Random Glucose 92 Calcium 9.0 Total Bilirubin 0.2 AST 111 H D ALT 62 H Alkaline Phosphatase 76 Total Protein 7.1 Albumin 3.7 Globulin 3.4 Albumin/Globulin Ratio 1.1 HIV 1&2 Ag/Ab, 4th Gen Nonreactive Intake & Output: Intake & Output 03/03/18 03/04/18 03/04/18 18:59 06:59 18:59 Intake Total 1800 1320 Output Total 400 Balance 1400 1320 Intake: IV 660 Right Forearm 660 Oral 1800 660 Output: Urine 400 Urine, Voided 400 Other: # Voids Urine, Voided 2 3 # Bowel Movements 0 0 Vital Signs: Vital Signs - 24 hr 03/03/18 03/03/18 03/03/18 14:00 16:16 17:38 Temperature 99.2 F Pulse Rate 94 H 97 H 97 H Respiratory 18 Rate Blood Pressure 160/100 H 160/90 H O2 Sat by Pulse 99 Oximetry 03/03/18 03/03/18 03/04/18 21:16 23:16 00:00 Temperature Pulse Rate 80 80 Respiratory 20 Rate Blood Pressure 190/90 H 220/140 H 155/108 H O2 Sat by Pulse 99 Oximetry 03/04/18 03/04/18 03/04/18 01:29 06:08 09:07 Temperature 98 F Pulse Rate 99 H 75 75 Respiratory 18 Rate Blood Pressure 160/112 H 170/110 H 170/110 H O2 Sat by Pulse 96 Oximetry 03/04/18 03/04/18 09:41 09:44 Temperature Pulse Rate 94 H 94 H Respiratory Rate Blood Pressure 165/110 H 165/110 H O2 Sat by Pulse Oximetry
--- NOTE | 2018-03-04 18:24 | CP.PCM.DIS ---
<Taco Muniz - Last Filed: 03/04/18 18:07> Provider - Provider Date of Admission: 03/02/18 05:44 Attending physician: Sravanthi Zhang MD Primary care physician: Mj Sánchez MD Consults: 03/02/18 06:00 Cardiology Consult ROUTINE AM Comment: Consulting Provider: Parag Marquez Consulting Physician: Parag Marquez Reason for Consult: angina 03/02/18 06:23 Neurology Consult Routine Comment: Consulting Provider: Chasity Baumann Consulting Physician: Chasity Baumann Reason for Consult: syncope 03/03/18 11:19 Consult [Physician Consult] Routine Comment: Consulting Provider: Laura Ricci Consulting Physician: Laura Ricci Reason for Consult: hematuria, flank pain Time Spent in preparation of Discharge (in minutes): 60 Diagnosis - Discharge Diagnosis (1) Upper respiratory infection, viral Status: Acute Hospital Course - Lab Results Lab Results: Micro Results 03/02/18 02:49 Urine,Clean Catch Urine Culture - Final <10,000 CFU/ML. MULTIPLE SPECIES. PROBABLE CONTAMINATION. Most Recent Lab Values WBC 2.9 10^3/uL (4.5-11.0) L 03/04/18 09:45 RBC 3.85 10^6/uL (3.5-6.1) 03/04/18 09:45 Hgb 10.7 g/dL (12.0-16.0) L 03/04/18 09:45 Hct 33.4 % (36.0-48.0) L 03/04/18 09:45 MCV 86.8 fl (80.0-105.0) 03/04/18 09:45 MCH 27.8 pg (25.0-35.0) 03/04/18 09:45 MCHC 32.0 g/dl (31.0-37.0) 03/04/18 09:45 RDW 17.6 % (11.5-14.5) H 03/04/18 09:45 Plt Count 158 10^3/uL (120.0-450.0) 03/04/18 09:45 MPV 8.5 fl (7.0-11.0) 03/04/18 09:45 Gran % 36.4 % (50.0-68.0) L 03/04/18 09:45 Lymph % (Auto) 48.4 % (22.0-35.0) H 03/04/18 09:45 [place] % (Auto) 13.9 % (1.0-6.0) H 03/04/18 09:45 Eos % (Auto) 1.0 % (1.5-5.0) L 03/04/18 09:45 Baso % (Auto) 0.3 % (0.0-3.0) 03/04/18 09:45 Gran # 1.04 (1.4-6.5) L 03/04/18 09:45 Lymph # (Auto) 1.4 (1.2-3.4) 03/04/18 09:45 [place] # (Auto) 0.4 (0.1-0.6) 03/04/18 09:45 Eos # (Auto) 0.0 (0.0-0.7) 03/04/18 09:45 Baso # (Auto) 0.01 K/mm3 (0.0-2.0) 03/04/18 09:45 D-Dimer, Quantitative 375 ng/mlDDU (0-243) H 03/02/18 02:38 Sodium 136 mmol/L (132-148) 03/04/18 09:45 Potassium 3.9 mmol/L (3.6-5.0) 03/04/18 09:45 Chloride 104 mmol/L (98-107) 03/04/18 09:45 Carbon Dioxide 27 mmol/L (21-33) 03/04/18 09:45 Anion Gap 9 (10-20) L 03/04/18 09:45 BUN 7 mg/dL (7-21) 03/04/18 09:45 Creatinine 0.6 mg/dl (0.7-1.2) L 03/04/18 09:45 Est GFR ( Amer) > 60 03/04/18 09:45 Est GFR (Non-Af Amer) > 60 03/04/18 09:45 Random Glucose 92 mg/dL (70-110) 03/04/18 09:45 Calcium 9.0 mg/dL (8.4-10.5) 03/04/18 09:45 Phosphorus 2.9 mg/dL (2.5-4.5) 03/03/18 05:45 Magnesium 1.7 mg/dL (1.7-2.2) 03/03/18 05:45 Total Bilirubin 0.2 mg/dL (0.2-1.3) 03/04/18 09:45 AST 111 U/L (14-36) H D 03/04/18 09:45 ALT 62 U/L (7-56) H 03/04/18 09:45 Alkaline Phosphatase 76 U/L (38-126) 03/04/18 09:45 Lactate Dehydrogenase 806 U/L (333-699) H 03/02/18 02:38 Total Creatine Kinase 396 U/L (35-230) H 03/02/18 02:38 CK-MB (CK-2) 3.6 ng/mL (0.0-3.6) 03/02/18 02:38 CK-MB (CK-2) % Cancelled 03/02/18 02:38 Troponin I 0.02 ng/mL D 03/02/18 15:30 NT-Pro-B Natriuret Pep 29.8 pg/mL (0-450) 03/02/18 02:38 Total Protein 7.1 g/dL (5.8-8.3) 03/04/18 09:45 Albumin 3.7 g/dL (3.0-4.8) 03/04/18 09:45 Globulin 3.4 gm/dL 03/04/18 09:45 Albumin/Globulin Ratio 1.1 (1.1-1.8) 03/04/18 09:45 Triglycerides 242 mg/dL (35-160) H 03/02/18 08:50 Cholesterol 234 mg/dL (130-200) H 03/02/18 08:50 LDL Cholesterol Direct 100 mg/dL (0-129) 03/02/18 08:50 HDL Cholesterol 93 mg/dL (29-60) H 03/02/18 08:50 TSH 3rd Generation 1.68 mIU/mL (0.46-4.68) 03/02/18 08:50 Beta HCG, Quant < 2.39 mIU/mL (0-6.15) 03/03/18 06:00 Urine Color Yellow (YELLOW) 03/02/18 21:26 Urine Appearance Turbid (CLEAR) 03/02/18 21:26 Urine pH 6.0 (4.7-8.0) 03/02/18 21:26 Ur Specific [place] 1.025 (1.005-1.035) 03/02/18 21:26 Urine Protein Trace mg/dL (<30 mg/dL) H 03/02/18 21:26 Urine Glucose (UA) Negative mg/dL (NEGATIVE) 03/02/18 21:26 Urine Ketones 40 mg/dL (NEGATIVE) H 03/02/18 21:26 Urine Blood Moderate (NEGATIVE) H 03/02/18 21:26 Urine Nitrate Negative (NEGATIVE) 03/02/18 21:26 Urine Bilirubin Moderate (NEGATIVE) H 03/02/18 21:26 Urine Urobilinogen 0.2 E.U./dL (<1 E.U./dL) 03/02/18 21:26 Ur Leukocyte Esterase Negative Jeannette/uL (NEGATIVE) 03/02/18 21:26 Urine RBC 0 - 2 /hpf (0-2) 03/02/18 21:26 Urine WBC 0 - 2 /hpf (0-6) 03/02/18 21:26 Ur Epithelial Cells 4 - 5 /hpf (0-5) 03/02/18 21:26 Urine Bacteria Occ (NEG) 03/02/18 02:49 Urine Opiates Screen Negative (NEGATIVE) 03/02/18 02:49 Urine Methadone Screen Negative (NEGATIVE) 03/02/18 02:49 Ur Barbiturates Screen Positive (NEGATIVE) H 03/02/18 02:49 Ur Phencyclidine Scrn Negative (NEGATIVE) 03/02/18 02:49 Ur Amphetamines Screen Negative (NEGATIVE) 03/02/18 02:49 U Benzodiazepines Scrn Negative (NEGATIVE) 03/02/18 02:49 U Oth Cocaine Metabols Negative (NEGATIVE) 03/02/18 02:49 U Cannabinoids Screen Negative (NEGATIVE) 03/02/18 02:49 Alcohol, Quantitative 163 mg/dL (0-10) H 03/02/18 02:38 Hepatitis A IgM Ab Negative (NEGATIVE) 03/02/18 08:50 Hep Bs Antigen Negative (NEGATIVE) 03/02/18 08:50 Hep B Core IgM Ab Negative (NEGATIVE) 03/02/18 08:50 Hepatitis C Antibody Negative (NEGATIVE) 03/02/18 08:50 HIV 1&2 Ag/Ab, 4th Gen Nonreactive (Nonreactive) 03/03/18 06:00 - Hospital Course Hospital Course: Taco Muniz, PGY-1, Internal Medicine Discharge Summary for Dr. Kidd 32 year old male with PMH of HTN, asthma presented with chest pain. Patient stated that the pain started after she had syncopal episode. She has had this happen before when she was hypertensive. Patient also reporte chest pain radiating to the back, left arm numbness, nausea, and shortness of breath. Patient was worked up for syncope with head trauma likely 2/[address] showed no evidence of trauma or hematoma. Bilateral carotid ultrasound showed 0-19% stenosis of bilateral ICA. Syncope was most likely due to uncontrolled hypertension with blood pressures ranging from systolic 142 to 195. Patient was started on apresoline, lopressor, and zestril. Patient was worked up for ACS rule out of chest pain with EKG showing sinus tachycardia with left atrial enlargement and LVH with HR of 106. Repeat EKG was consistent with prior findings. Troponinx3 was negative. Patient was told to follow up with Dr. Marquez for outpatient appointment. D-dimer was elevated, so CTA was ordered to rule out PE. CTA was negative for PE. TSH was unremarkable. ACS was ruled out based on imaging and labs. Patient was started on CIWA protocol yesterday since serum alcohol level was positive and patient was started on ativan 1 mg Q6 and Q4PRN for withdrawal symptoms. CIWA score was less than 8 throughout admission. AST to ALT ratio was more than 2 on admission and trended down throughout this admission. Patient reports that her symptoms improved with administration of ativan. Two days ago, patient complained of flank pain and hematuria. Hematuria was not visualized. Patient had negative POC test and B-HCG test. Yesterday, I witnessed the hematuria in her basin and patient was still complaining of flank pain so abdominal CT with contrast was ordered to rule out nephrolithasis vs. pyelonephritis. Abdominal CT was negative for nephrolithiasis and pyelonephritis but showed fatty liver. Dr. Ricci was consulted for recommendations , who recommended no plans for intervention and for patient to follow up outpatient. Patient was also found to be positive for barbiturates on UDS and counseled regarding cessation. Patient was told to follow up with PCP, Dr. Ricci, and Dr. Marquez outpatient for follow up for conditions. Patient was told to take medications as prescribed. Due to elevated blood pressure, amlodipine and lopressor were added as home medications on this hospital visit. Patient was told to return to the emergency department if patient had any recurring or worsening symptoms. This is a brief summary of the events that occurred at this hospital visit. For more information, please refer to the hospital documentation. - Date & Time of H&P Date of H&P: 03/02/18 Time of H&P: 06:25 Discharge Exam - Head Exam Head Exam: ATRAUMATIC, NORMAL INSPECTION, NORMOCEPHALIC - Eye Exam Eye Exam: EOMI Pupil Exam: PERRL - Respiratory Exam Respiratory Exam: Clear to PA & Lateral - Cardiovascular Exam Cardiovascular Exam: REGULAR RHYTHM - GI/Abdominal Exam GI & Abdominal Exam: Normal Bowel Sounds - Neurological Exam Neurological exam: Alert, CN II-XII Intact, Oriented x3 Discharge Plan - Discharge Medications Prescriptions: RX: amLODIPine [Norvasc] 5 mg PO DAILY #30 tab RX: Metoprolol Tartrate [Lopressor] 12.5 mg PO BID #30 tab - Follow Up Plan Condition: GOOD Disposition: HOME/ ROUTINE Instructions: High Blood Pressure in Adults Additional Instructions: Please follow up with your PCP in one week. Please follow up with urology, Dr. Ricci, within one week of discharge. Follow up with Dr. Marquez on schedule appointment. Please take all home medications as prescribed. You can take ibuprofen for pain as needed. Due to your liver function tests, avoid tylenol. Please return to the ER if you have any new concerning symptoms or worsening symptoms. Referrals: Mj Sánchez MD [Primary Care Provider] - Laura Ricci MD [Staff Provider] - Parag Marquez MD [Staff Provider] - <Cristino Kidd - Last Filed: 03/04/18 18:35> Provider - Provider Date of Admission: 03/02/18 05:44 Attending physician: Sravanthi Zhang MD Primary care physician: Mj Sánchez MD Consults: 03/02/18 06:00 Cardiology Consult ROUTINE AM Comment: Consulting Provider: Parag Marquez Consulting Physician: Parag Marquez Reason for Consult: angina 03/02/18 06:23 Neurology Consult Routine Comment: Consulting Provider: Chasity Baumann Consulting Physician: Chasity Baumann Reason for Consult: syncope 03/03/18 11:19 Consult [Physician Consult] Routine Comment: Consulting Provider: Laura Ricci Consulting Physician: Laura Ricci Reason for Consult: hematuria, flank pain Hospital Course - Lab Results Lab Results: Micro Results 03/02/18 02:49 Urine,Clean Catch Urine Culture - Final <10,000 CFU/ML. MULTIPLE SPECIES. PROBABLE CONTAMINATION. Most Recent Lab Values WBC 2.9 10^3/uL (4.5-11.0) L 03/04/18 09:45 RBC 3.85 10^6/uL (3.5-6.1) 03/04/18 09:45 Hgb 10.7 g/dL (12.0-16.0) L 03/04/18 09:45 Hct 33.4 % (36.0-48.0) L 03/04/18 09:45 MCV 86.8 fl (80.0-105.0) 03/04/18 09:45 MCH 27.8 pg (25.0-35.0) 03/04/18 09:45 MCHC 32.0 g/dl (31.0-37.0) 03/04/18 09:45 RDW 17.6 % (11.5-14.5) H 03/04/18 09:45 Plt Count 158 10^3/uL (120.0-450.0) 03/04/18 09:45 MPV 8.5 fl (7.0-11.0) 03/04/18 09:45 Gran % 36.4 % (50.0-68.0) L 03/04/18 09:45 Lymph % (Auto) 48.4 % (22.0-35.0) H 03/04/18 09:45 [place] % (Auto) 13.9 % (1.0-6.0) H 03/04/18 09:45 Eos % (Auto) 1.0 % (1.5-5.0) L 03/04/18 09:45 Baso % (Auto) 0.3 % (0.0-3.0) 03/04/18 09:45 Gran # 1.04 (1.4-6.5) L 03/04/18 09:45 Lymph # (Auto) 1.4 (1.2-3.4) 03/04/18 09:45 [place] # (Auto) 0.4 (0.1-0.6) 03/04/18 09:45 Eos # (Auto) 0.0 (0.0-0.7) 03/04/18 09:45 Baso # (Auto) 0.01 K/mm3 (0.0-2.0) 03/04/18 09:45 D-Dimer, Quantitative 375 ng/mlDDU (0-243) H 03/02/18 02:38 Sodium 136 mmol/L (132-148) 03/04/18 09:45 Potassium 3.9 mmol/L (3.6-5.0) 03/04/18 09:45 Chloride 104 mmol/L (98-107) 03/04/18 09:45 Carbon Dioxide 27 mmol/L (21-33) 03/04/18 09:45 Anion Gap 9 (10-20) L 03/04/18 09:45 BUN 7 mg/dL (7-21) 03/04/18 09:45 Creatinine 0.6 mg/dl (0.7-1.2) L 03/04/18 09:45 Est GFR ( Amer) > 60 03/04/18 09:45 Est GFR (Non-Af Amer) > 60 03/04/18 09:45 Random Glucose 92 mg/dL (70-110) 03/04/18 09:45 Calcium 9.0 mg/dL (8.4-10.5) 03/04/18 09:45 Phosphorus 2.9 mg/dL (2.5-4.5) 03/03/18 05:45 Magnesium 1.7 mg/dL (1.7-2.2) 03/03/18 05:45 Total Bilirubin 0.2 mg/dL (0.2-1.3) 03/04/18 09:45 AST 111 U/L (14-36) H D 03/04/18 09:45 ALT 62 U/L (7-56) H 03/04/18 09:45 Alkaline Phosphatase 76 U/L (38-126) 03/04/18 09:45 Lactate Dehydrogenase 806 U/L (333-699) H 03/02/18 02:38 Total Creatine Kinase 396 U/L (35-230) H 03/02/18 02:38 CK-MB (CK-2) 3.6 ng/mL (0.0-3.6) 03/02/18 02:38 CK-MB (CK-2) % Cancelled 03/02/18 02:38 Troponin I 0.02 ng/mL D 03/02/18 15:30 NT-Pro-B Natriuret Pep 29.8 pg/mL (0-450) 03/02/18 02:38 Total Protein 7.1 g/dL (5.8-8.3) 03/04/18 09:45 Albumin 3.7 g/dL (3.0-4.8) 03/04/18 09:45 Globulin 3.4 gm/dL 03/04/18 09:45 Albumin/Globulin Ratio 1.1 (1.1-1.8) 03/04/18 09:45 Triglycerides 242 mg/dL (35-160) H 03/02/18 08:50 Cholesterol 234 mg/dL (130-200) H 03/02/18 08:50 LDL Cholesterol Direct 100 mg/dL (0-129) 03/02/18 08:50 HDL Cholesterol 93 mg/dL (29-60) H 03/02/18 08:50 TSH 3rd Generation 1.68 mIU/mL (0.46-4.68) 03/02/18 08:50 Beta HCG, Quant < 2.39 mIU/mL (0-6.15) 03/03/18 06:00 Urine Color Yellow (YELLOW) 03/02/18 21:26 Urine Appearance Turbid (CLEAR) 03/02/18 21:26 Urine pH 6.0 (4.7-8.0) 03/02/18 21:26 Ur Specific [place] 1.025 (1.005-1.035) 03/02/18 21:26 Urine Protein Trace mg/dL (<30 mg/dL) H 03/02/18 21:26 Urine Glucose (UA) Negative mg/dL (NEGATIVE) 03/02/18 21:26 Urine Ketones 40 mg/dL (NEGATIVE) H 03/02/18 21:26 Urine Blood Moderate (NEGATIVE) H 03/02/18 21:26 Urine Nitrate Negative (NEGATIVE) 03/02/18 21:26 Urine Bilirubin Moderate (NEGATIVE) H 03/02/18 21:26 Urine Urobilinogen 0.2 E.U./dL (<1 E.U./dL) 03/02/18 21:26 Ur Leukocyte Esterase Negative [place]ann[place]/uL (NEGATIVE) 03/02/18 21:26 Urine RBC 0 - 2 /hpf (0-2) 03/02/18 21:26 Urine WBC 0 - 2 /hpf (0-6) 03/02/18 21:26 Ur Epithelial Cells 4 - 5 /hpf (0-5) 03/02/18 21:26 Urine Bacteria Occ (NEG) 03/02/18 02:49 Urine Opiates Screen Negative (NEGATIVE) 03/02/18 02:49 Urine Methadone Screen Negative (NEGATIVE) 03/02/18 02:49 Ur Barbiturates Screen Positive (NEGATIVE) H 03/02/18 02:49 Ur Phencyclidine Scrn Negative (NEGATIVE) 03/02/18 02:49 Ur Amphetamines Screen Negative (NEGATIVE) 03/02/18 02:49 U Benzodiazepines Scrn Negative (NEGATIVE) 03/02/18 02:49 U Oth Cocaine Metabols Negative (NEGATIVE) 03/02/18 02:49 U Cannabinoids Screen Negative (NEGATIVE) 03/02/18 02:49 Alcohol, Quantitative 163 mg/dL (0-10) H 03/02/18 02:38 Hepatitis A IgM Ab Negative (NEGATIVE) 03/02/18 08:50 Hep Bs Antigen Negative (NEGATIVE) 03/02/18 08:50 Hep B Core IgM Ab Negative (NEGATIVE) 03/02/18 08:50 Hepatitis C Antibody Negative (NEGATIVE) 03/02/18 08:50 HIV 1&2 Ag/Ab, 4th Gen Nonreactive (Nonreactive) 03/03/18 06:00 Attending/Attestation - Attestation I have personally seen and examined this patient.: Yes I have fully participated in the care of the patient.: Yes I have reviewed all pertinent clinical information, including history, physical exam and plan: Yes
== END 2018-03-04 17:40 | disposition home or self-care (01) ==
LOC: ED 01:42 → ERH 05:44 → 3RSO 10:04
PROVIDERS: ADMIT Internal Medicine; ATTEND Internal Medicine
DX: J06.9 Acute upper respiratory infection, unspecified (principal); F10.239 Alcohol dependence with withdrawal, unspecified; I10 Essential (primary) hypertension; I65.23 Occlusion and stenosis of bilateral carotid arteries; J45.909 Unspecified asthma, uncomplicated; Z91.14 Patient's other noncompliance with medication regimen
CPT/HCPCS: 36415; 70450; 71045; 71275; 74176; 80053; 80061; 80074; 80320; 80324; 80345; 80346; 80349; 80353; 80358; 80361; 81001; 82550; 82553; 83615; 83735; 83874; 83880; 83992; 84100; 84443; 84484; 84702; 85025; 85378; 85613; 85730; 87086; 87389; 93005; 93306; 93880; 96360; 96374; 99285; G0378; J0360; J1644; J1885; J2060; J2270; J2405; J2765; J7030; Q9967

== ENCOUNTER 2018-05-25 13:10 | Emergency (ER) | payer MEDICAID | END 2018-05-25 19:44 | disposition home or self-care (01) | LOC: ED 13:10 ==

== ENCOUNTER 2018-06-04 22:26 | Emergency (ER) | payer MEDICAID ==
[2018-06-05] MEDS ORDERED: Sodium Chloride 0.9% 1,000 ML IV STA (00:11)
[2018-06-05 00:42] VITALS: BMI 22.6
--- NOTE | 2018-06-05 01:04 | ED PDOC ---
Arrival/HPI - General Chief Complaint: Abdominal Pain Time Seen by Provider: 06/05/18 00:05 Historian: Patient - History of Present Illness Narrative History of Present Illness (Text): 06/05/18 01:02 33 year old female, with pmh of hypertension, presents to emergency department complaining of abdominal pain and spotting due to diagnosis of miscarriage a week ago. Patient notes she never came back for repeat bloodwork and wants to have that done now. Patient admits to drinking to ease pain and smells of alcohol. Patient denies any fever, nausea, vomiting, and urinary symptoms. Time/Duration: Prior to Arrival Symptom Onset: Gradual Symptom Course: Unchanged Activities at Onset: Light Context: Home Past Medical History - Provider Review Nursing Documentation Reviewed: Yes - Infectious Disease Hx of Infectious Diseases: None - Cardiac Hx Cardiac Disorders: Yes Hx Hypertension: Yes (noncompliant to meds) - Pulmonary Hx Respiratory Disorders: Yes Hx Asthma: Yes - Neurological Hx Neurological Disorder: No - HEENT Hx HEENT Disorder: No - Renal Hx Renal Disorder: No - Endocrine/Metabolic Hx Endocrine Disorders: No - Hematological/Oncological Hx Blood Disorders: No - Integumentary Hx Dermatological Disorder: Yes Hx Eczema: Yes - Musculoskeletal/Rheumatological Hx Musculoskeletal Disorders: No Hx Falls: Yes - Gastrointestinal Hx Gastrointestinal Disorders: No - Genitourinary/Gynecological Hx Genitourinary Disorders: No - Psychiatric Hx Psychophysiologic Disorder: No Hx Substance Use: No - Surgical History Hx Section: Yes (x3) - Anesthesia Hx Anesthesia: Yes Hx Anesthesia Reactions: No Hx Malignant Hyperthermia: No Family/Social History - Physician Review Nursing Documentation Reviewed: Yes Family/Social History: Unknown Family HX Smoking Status: Light Smoker < 10 Cigarettes Daily Hx Alcohol Use: Yes Hx Substance Use: No Allergies/Home Meds Allergies/Adverse Reactions: Allergies Penicillins Allergy (Verified 06/05/18 00:38) RASH Home Medications: Home Meds Medication Instructions Recorded Confirmed Enalapril Maleate [Vasotec] 10 mg PO DAILY 01/03/18 06/05/18 Labetalol [Trandate] 0 mg PO TID 05/25/18 06/05/18 Review of Systems - Physician Review All systems were reviewed & negative as marked: Yes - Review of Systems Constitutional: absent: Fevers Respiratory: absent: SOB, Cough Gastrointestinal: Abdominal Pain. absent: Diarrhea, Nausea Genitourinary Female: Other (spotting). absent: Urine Output Changes Musculoskeletal: absent: Back Pain, Neck Pain Skin: absent: Rash Neurological: absent: Headache, Dizziness Physical Exam Vital Signs Reviewed: Yes Temperature: Afebrile Blood Pressure: Normal Pulse: Regular Respiratory Rate: Normal Appearance: Positive for: Well-Appearing, Non-Toxic, Comfortable Pain Distress: None Mental Status: Positive for: Alert and Oriented X 3 - Systems Exam Head: Present: Atraumatic, Normocephalic Pupils: Present: PERRL Extroacular Muscles: Present: EOMI Conjunctiva: Present: Normal Mouth: Present: Moist Mucous Membranes Neck: Present: Normal Range of Motion Respiratory/Chest: Present: Clear to Auscultation, Good Air Exchange. No: Respiratory Distress, Accessory Muscle Use Cardiovascular: Present: Regular Rate and Rhythm, Normal S1, S2. No: Murmurs Abdomen: Present: Tenderness (mild lower abdominal tenderness). No: Distention, Peritoneal Signs Back: Present: Normal Inspection Upper Extremity: Present: Normal Inspection. No: Cyanosis, Edema Lower Extremity: Present: Normal Inspection. No: Edema Neurological: Present: GCS=15, CN II-XII Intact, Speech Normal Skin: Present: Warm, Dry, Normal Color. No: Rashes Psychiatric: Present: Alert, Oriented x 3, Normal Insight, Normal Concentration Medical Decision Making ED Course and Treatment: 06/05/18 01:10 Impression: 33 year old female presents to emergency department for abdominal pain and spotting due to diagnosis of miscarriage a week ago. Labs from that visit on 05/25/18 showed hgb of 9.2, blood type A+, beta 10,176. Patient also had a negative US that day, which showed no IUP. Plan: -- Labs -- IV Fluids -- Toradol -- Urinalysis -- Reassess and disposition Prior Visits: Notes and results from previous visits were reviewed. Progress Notes: US TV : no gestational sac, no yolk sac, no pole, no heart motion, no fluids in the culde sac, +doppler flow to both ovaries present. CBC : hgb 11 Beta quant : 84 06/05/18 05:33 US Pelvis: Impression: No evidence of intrauterine . Free fluid is noted in the endometrial cavity. Nabothian cyst of the cervix. Electronically signed on Jun 05, 2018 2:46:18 AM EDT by: Abisai Smith M.D., Certified by [facility], [facility], Neuroradiology Results d/w the patient, advised that she definitely had a miscarriage as her beta quant dropped from 10,176 to 84 and both US from 05/25/18 and US today showed no IUP. Advised to follow up with her ob/gyn physician. - Medication Orders Current Medication Orders: Sodium Chloride (Sodium Chloride 0.9%) 1,000 mls @ 1,000 mls/hr IV .Q1H STA Stop: 06/05/18 01:10 Discontinued Medications Ketorolac Tromethamine (Toradol) 30 mg IVP STAT STA Stop: 06/05/18 00:12 - PA / MORTISING MACHINE OPERATOR / Resident Statement MD/DO has reviewed & agrees with the documentation as recorded. - Scribe Statement The provider has reviewed the documentation as recorded by the Scribe Tj Carrasco All medical record entries made by the Scribe were at my direction and personally dictated by me. I have reviewed the chart and agree that the record accurately reflects my personal performance of the history, physical exam, medical decision making, and the department course for this patient. I have also personally directed, reviewed, and agree with the discharge instructions and disposition. Disposition/Present on Arrival - Present on Arrival Any Indicators Present on Arrival: No History of DVT/PE: No History of Uncontrolled Diabetes: No Urinary Catheter: No History of Decub. Ulcer: No History Surgical Site Infection Following: None - Disposition Have Diagnosis and Disposition been Completed?: Yes Diagnosis: Alcohol intoxication, Abdominal pain, Miscarriage Disposition: HOME/ ROUTINE Disposition Time: 03:30 Patient Plan: Discharge Condition: STABLE Discharge Instructions (ExitCare): Alcohol Use - When Is Drinking a Problem?, Miscarriage (DC) Additional Instructions: DANIELLE ZHU, thank you for letting us take care of you today. Your provider was Giulia Diamond MD and you were treated for ETOH; ABDOMINAL PAIN. The emergency medical care you received today was directed at your acute symptoms. If you were prescribed any medication, please fill it and take as directed. It may take several days for your symptoms to resolve. Return to the Emergency Department if your symptoms worsen, do not improve, or if you have any other problems. Please contact your doctor or call one of the physicians/clinics you have been referred to that are listed on the Patient Visit Information form that is included in your discharge packet. Bring any paperwork you were given at discharge with you along with any medications you are taking to your follow up visit. Our treatment cannot replace ongoing medical care by a primary care provider outside of the emergency department. Thank you for allowing the [facility] team to be part of your care today. If you had an X-Ray or CT scan: A Radiologist will review the ED reading if any change in treatment is needed we will contact you. If you had a blood, urine, or wound culture: It will take several days for the results, if any change in treatment is needed we will contact you. If you had an STI test: It will take 48 hours for the results. Please call after 1 week if you have not heard back. Prescriptions: Acetaminophen [Tylenol] 650 mg PO Q6 PRN #15 capsule PRN Reason: Pain, Moderate (4-7) Forms: [employer] (Frisian)
[2018-06-05 01:06] VITALS: TEMP 98.7
[2018-06-05 01:48] LABS: BASO # 0.01 K/mm3 (0.0-2.0); BASO % 0.2 % (0.0-3.0); EOS % 0.7 % (1.5-5.0); LYMPH # 2.1 (1.2-3.4); LYMPH % 46.8 % (22.0-35.0); MEAN CELL VOLUME 95.5 fl (80.0-105.0); MEAN CORPUSCULAR HEMOGLOBIN 30.6 pg (25.0-35.0); MEAN CORPUSCULAR HGB CONC 32.1 g/dl (31.0-37.0); MONO # 0.2 (0.1-0.6); MONO % 5.3 % (1.0-6.0); RBC 3.59 10^6/uL (3.5-6.1); RED CELL DISTRIBUTION WIDTH 15.6 % (11.5-14.5); WHITE BLOOD COUNT 4.5 10^3/uL (4.5-11.0)
[2018-06-05 02:44] LABS: ALB/GLOB RATIO 1.4 (1.1-1.8); ALBUMIN 4.6 g/dL (3.0-4.8); ALT/SGPT 102 U/L (7-56); AST/SGOT 269 U/L (14-36); BLOOD UREA NITROGEN 12 mg/dL (7-21); CALCIUM 8.9 mg/dL (8.4-10.5); GFR NON-AFRICAN AMERICAN > 60
[2018-06-05 03:05] VITALS: BP 142/80; RESP 18
[2018-06-05 03:05] LABS: URINE BILIRUBIN NEGATIVE (NEGATIVE); URINE BLOOD SMALL (NEGATIVE); URINE GLUCOSE (UA) NEGATIVE (NEGATIVE); URINE LEUKOCYTE ESTERASE NEGATIVE Leu/uL (NEGATIVE); URINE PROTEIN TRACE mg/dL (<30 mg/dL); URINE UROBILINOGEN 0.2 E.U./dL (<1 E.U./dL)
[2018-06-05 03:11] LABS: URINE APPEARANCE SL CLOUDY (CLEAR); URINE COLOR YELLOW (YELLOW)
[2018-06-05 03:33] LABS: URINE WBC 0 - 2 /hpf (0-6)
[2018-06-05 03:34] LABS: URINE BACTERIA MOD /hpf
[2018-06-05 04:24] VITALS: PULSE 90; O2SAT 100
--- NOTE | 2018-06-05 10:26 | US ---
Date of service: 06/05/2018 HISTORY: Abdominal pain. LMP 03/16/2018. Relevant medical history: Miscarriage approximately 1 week ago presenting with recurrent postprocedure bleeding. COMPARISON: 05/25/2018. Pelvic ultrasound TECHNIQUE: Transvaginal only. Real -time technique with 2D, duplex and color Doppler FINDINGS: UTERUS: Measures 5.4 x 5.6 x 9.7 cm. Normal in size and appearance. No fibroid or other mass lesion seen. ENDOMETRIUM: Measures 7.8 mm in diameter. Fluid, debris identified within the endometrial canal. CERVIX: No cervical abnormality identified.Incidental finding: Nabothian cysts the largest measures 1.1 cm. RIGHT OVARY: Measures 1.6 x 2.2 x 2.6 cm. No solid mass. Normal flow. LEFT OVARY: Measures 2.2 x 2.3 x 3.0 cm. No solid mass. Normal flow. FREE FLUID: No significant free fluid noted. OTHER FINDINGS: None. IMPRESSION: Fluid common debris within the endometrial canal consistent with clinical history. Retained products of conception should be considered in addition to this fluid. This can should be correlated with beta HCG. Additional benign and/or incidental findings described above. Concordant findings (preliminary report) provided by [facility].
== END 2018-06-05 04:00 | disposition home or self-care (01) ==
LOC: ED 22:26
DX: O03.9 Complete or unspecified spontaneous abortion without complication (principal); F10.129 Alcohol abuse with intoxication, unspecified; R10.9 Unspecified abdominal pain
CPT/HCPCS: 76817; 80053; 81001; 81025; 84702; 85025; 87086; 96374; 99283; J1885; J7030

== ENCOUNTER 2018-06-06 03:37 | Emergency (ER) | payer MEDICAID ==
[2018-06-06 03:37] VITALS: BMI 22.6
[2018-06-06 04:39] LABS: ALB/GLOB RATIO 1.3 (1.1-1.8); ALBUMIN 4.4 g/dL (3.0-4.8); ALT/SGPT 79 U/L (7-56); AST/SGOT 194 U/L (14-36); BLOOD UREA NITROGEN 9 mg/dL (7-21); CALCIUM 8.8 mg/dL (8.4-10.5); GFR NON-AFRICAN AMERICAN > 60
[2018-06-06 04:40] LABS: BASO # 0.01 K/mm3 (0.0-2.0); BASO % 0.3 % (0.0-3.0); EOS % 0.3 % (1.5-5.0); HEMOGLOBIN 10.5 g/dL (12.0-16.0); LYMPH # 0.9 (1.2-3.4); MEAN CELL VOLUME 96.2 fl (80.0-105.0); MEAN CORPUSCULAR HEMOGLOBIN 31.1 pg (25.0-35.0); MEAN CORPUSCULAR HGB CONC 32.3 g/dl (31.0-37.0); MEAN PLATELET VOLUME 7.9 fl (7.0-11.0); MONO # 0.2 (0.1-0.6); MONO % 6.2 % (1.0-6.0); RBC 3.38 10^6/uL (3.5-6.1); RED CELL DISTRIBUTION WIDTH 15.6 % (11.5-14.5); WHITE BLOOD COUNT 3.4 10^3/uL (4.5-11.0)
--- NOTE | 2018-06-06 05:54 | ED PDOC ---
Arrival/HPI <Cam Marinelli - Last Filed: 06/06/18 10:49> - History of Present Illness Narrative History of Present Illness (Text): 06/06/18 06:15 pt present by [facility] [place] intoxication, no hx of trauma, pt is lethargic talking in fragmented sentences <Bishnu Galo - Last Filed: 06/07/18 01:40> - General Chief Complaint: Alcohol Ingestion Time Seen by Provider: 06/06/18 03:40 Past Medical History - Provider Review Nursing Documentation Reviewed: Yes - Infectious Disease Hx of Infectious Diseases: None - Reproductive Currently : No - Cardiac Hx Cardiac Disorders: Yes Hx Hypertension: Yes (noncompliant to meds) - Pulmonary Hx Respiratory Disorders: Yes Hx Asthma: Yes - Neurological Hx Neurological Disorder: No - HEENT Hx HEENT Disorder: No - Renal Hx Renal Disorder: No - Endocrine/Metabolic Hx Endocrine Disorders: No - Hematological/Oncological Hx Blood Disorders: No - Integumentary Hx Dermatological Disorder: Yes Hx Eczema: Yes - Musculoskeletal/Rheumatological Hx Musculoskeletal Disorders: No Hx Falls: Yes - Gastrointestinal Hx Gastrointestinal Disorders: No - Genitourinary/Gynecological Hx Genitourinary Disorders: No - Psychiatric Hx Psychophysiologic Disorder: No Hx Substance Use: No - Surgical History Hx Section: Yes (x3) - Anesthesia Hx Anesthesia: Yes Hx Anesthesia Reactions: No Hx Malignant Hyperthermia: No <Bishnu Galo - Last Filed: 06/07/18 01:40> Family/Social History - Physician Review Nursing Documentation Reviewed: Yes Family/Social History: No Known Family HX Smoking Status: Light Smoker < 10 Cigarettes Daily Hx Alcohol Use: Yes Hx Substance Use: No <Bishnu Galo - Last Filed: 06/07/18 01:40> Allergies/Home Meds <Cam Marinelli - Last Filed: 06/06/18 10:49> <Bishnu Galo - Last Filed: 06/07/18 01:40> Allergies/Adverse Reactions: Allergies Penicillins Allergy (Verified 06/05/18 00:38) RASH Home Medications: Home Meds Medication Instructions Recorded Confirmed Enalapril Maleate [Vasotec] 10 mg PO DAILY 01/03/18 06/05/18 Labetalol [Trandate] 0 mg PO TID 05/25/18 06/05/18 Review of Systems - Review of Systems Systems not reviewed;Unavailable: Intoxicated <Bishnu Galo - Last Filed: 06/07/18 01:40> Physical Exam Vital Signs Temp Pulse Resp BP Pulse Ox 06/06/18 07:32 98 F 75 18 121/59 L 97 06/06/18 05:55 98.0 F 75 20 117/69 95 06/06/18 03:37 98.0 F 103 H 18 162/104 H 96 <Cam Marinelli - Last Filed: 06/06/18 10:49> - Physical Exam Physical Exam Limitations: Intoxication Vital Signs Temp Pulse Resp BP Pulse Ox 06/06/18 03:37 98.0 F 103 H 18 162/104 H 96 Temperature: Afebrile Blood Pressure: Normal Pulse: Regular Respiratory Rate: Normal Appearance: Positive for: Well-Appearing, Non-Toxic, Comfortable Pain Distress: None Mental Status: Positive for: Lethargic Finger Stick Blood Glucose: 121 - Systems Exam Head: Present: Atraumatic, Normocephalic Pupils: Present: PERRL Extroacular Muscles: Present: EOMI Conjunctiva: Present: Normal Mouth: Present: Moist Mucous Membranes Neck: Present: Normal Range of Motion Respiratory/Chest: Present: Clear to Auscultation, Good Air Exchange. No: Respiratory Distress, Accessory Muscle Use Cardiovascular: Present: Regular Rate and Rhythm, Normal S1, S2. No: Murmurs Abdomen: No: Tenderness, Distention, Peritoneal Signs Back: Present: Normal Inspection Upper Extremity: Present: Normal Inspection. No: Cyanosis, Edema Lower Extremity: Present: Normal Inspection. No: Edema Neurological: Present: GCS=15, CN II-XII Intact, Speech Normal Skin: Present: Warm, Dry, Normal Color. No: Rashes Psychiatric: Present: Intoxicated <Bishnu Galo - Last Filed: 06/07/18 01:40> Medical Decision Making ED Course and Treatment: 06/06/18 07:51 Patient was turned over to me by , waiting for her to sober up. She is currently sleeping comfortably. No problems were reported overnight. 06/06/18 10:49 Patient is up wandering about the ED with her . Discharged home to follow-up with PMD. Follow-up in ER as needed. - Lab Interpretations Lab Results: Total Bilirubin 0.2 mg/dL (0.2-1.3) 06/06/18 04:19 AST 194 U/L (14-36) H D 06/06/18 04:19 ALT 79 U/L (7-56) H 06/06/18 04:19 Alkaline Phosphatase 65 U/L (38-126) 06/06/18 04:19 Total Protein 7.9 g/dL (5.8-8.3) 06/06/18 04:19 Albumin 4.4 g/dL (3.0-4.8) 06/06/18 04:19 Globulin 3.4 gm/dL 06/06/18 04:19 Albumin/Globulin Ratio 1.3 (1.1-1.8) 06/06/18 04:19 <Cam Marinelli - Last Filed: 06/06/18 10:49> - Lab Interpretations Lab Results: Total Bilirubin 0.2 mg/dL (0.2-1.3) 06/06/18 04:19 AST 194 U/L (14-36) H D 06/06/18 04:19 ALT 79 U/L (7-56) H 06/06/18 04:19 Alkaline Phosphatase 65 U/L (38-126) 06/06/18 04:19 Total Protein 7.9 g/dL (5.8-8.3) 06/06/18 04:19 Albumin 4.4 g/dL (3.0-4.8) 06/06/18 04:19 Globulin 3.4 gm/dL 06/06/18 04:19 Albumin/Globulin Ratio 1.3 (1.1-1.8) 06/06/18 04:19 - Transfer of Care Patient signed out to Dr:: dilma valencia <Bishnu Galo - Last Filed: 06/07/18 01:40> Disposition/Present on Arrival - Present on Arrival Any Indicators Present on Arrival: No History of DVT/PE: No History of Uncontrolled Diabetes: No Urinary Catheter: No History of Decub. Ulcer: No - Disposition Have Diagnosis and Disposition been Completed?: Yes Disposition Time: 10:50 Patient Plan: Discharge <Cam Marinelli - Last Filed: 06/06/18 10:49> - Present on Arrival Any Indicators Present on Arrival: No History of DVT/PE: No History of Uncontrolled Diabetes: No Urinary Catheter: No History of Decub. Ulcer: No History Surgical Site Infection Following: None - Disposition Have Diagnosis and Disposition been Completed?: Yes <Bishnu Galo - Last Filed: 06/07/18 01:40> - Disposition Diagnosis: Alcohol intoxication, Alcohol abuse Disposition: HOME/ ROUTINE Condition: IMPROVED Discharge Instructions (ExitCare): Alcohol Use - When Is Drinking a Problem?, Alcohol Abuse and Alcoholism (DC) Forms: [employer] (Kiswahili)
[2018-06-06 07:34] VITALS: TEMP 98; O2SAT 97
[2018-06-06 11:01] VITALS: BP 122/59; PULSE 87; RESP 19
== END 2018-06-06 11:06 | disposition home or self-care (01) ==
LOC: ED 03:37
DX: F10.129 Alcohol abuse with intoxication, unspecified (principal); Y90.8 Blood alcohol level of 240 mg/100 ml or more; I10 Essential (primary) hypertension; F17.210 Nicotine dependence, cigarettes, uncomplicated

== ENCOUNTER 2018-07-15 13:55 | Emergency (ER) | payer MEDICAID ==
[2018-07-15 14:11] VITALS: BMI 26.8
[2018-07-15] MEDS ORDERED: Sodium Chloride 0.9% 1,000 ML IV STA (14:12)
[2018-07-15 14:18] VITALS: RESP 18; TEMP 98.2
--- NOTE | 2018-07-15 14:29 | ED PDOC ---
Arrival/HPI - General Time Seen by Provider: 07/15/18 14:05 Historian: Patient - History of Present Illness Narrative History of Present Illness (Text): 07/15/18 14:05 Patient is a 33 year old female, with a history of alcohol abuse, who presents to the emergency department complaining of generalized body pain. Patient was recently admitted to [facility] [place] for anxiety and alcohol abuse and was discharged 2 days ago. Reports fever and cough. Patient is agitated and seems intoxicated on arrival. Patient requests pain medication. Patient denies night sweats, vision changes, headache, dizziness, shortness of breath, chest pain, diarrhea, nausea, vomiting, dysuria, hematuria, rash, diaphoresis, or any other complaint. Symptom Onset: Gradual Symptom Course: Unchanged Activities at Onset: Light Context: Home Past Medical History - Provider Review Nursing Documentation Reviewed: Yes - Infectious Disease Hx of Infectious Diseases: None - Cardiac Hx Cardiac Disorders: Yes Hx Hypertension: Yes (noncompliant to meds) - Pulmonary Hx Respiratory Disorders: Yes Hx Asthma: Yes - Neurological Hx Neurological Disorder: No - HEENT Hx HEENT Disorder: No - Renal Hx Renal Disorder: No - Endocrine/Metabolic Hx Endocrine Disorders: No - Hematological/Oncological Hx Blood Disorders: No - Integumentary Hx Dermatological Disorder: Yes Hx Eczema: Yes - Musculoskeletal/Rheumatological Hx Musculoskeletal Disorders: No Hx Falls: Yes - Gastrointestinal Hx Gastrointestinal Disorders: No - Genitourinary/Gynecological Hx Genitourinary Disorders: No - Psychiatric Hx Psychophysiologic Disorder: No Hx Substance Use: No - Surgical History Hx Section: Yes (x3) - Anesthesia Hx Anesthesia: Yes Hx Anesthesia Reactions: No Hx Malignant Hyperthermia: No Family/Social History - Physician Review Nursing Documentation Reviewed: Yes Family/Social History: Unknown Family HX Smoking Status: Light Smoker < 10 Cigarettes Daily Hx Alcohol Use: Yes Hx Substance Use: No Allergies/Home Meds Allergies/Adverse Reactions: Allergies Penicillins Allergy (Verified 06/05/18 00:38) RASH Home Medications: Home Meds Medication Instructions Recorded Confirmed Enalapril Maleate [Vasotec] 10 mg PO DAILY 01/03/18 06/05/18 Labetalol [Trandate] 0 mg PO TID 05/25/18 06/05/18 Review of Systems - Physician Review All systems were reviewed & negative as marked: Yes - Review of Systems Constitutional: Fevers, Other (generalized body pain). absent: Night Sweats Eyes: absent: Vision Changes Respiratory: Cough. absent: SOB Cardiovascular: absent: Chest Pain Gastrointestinal: absent: Abdominal Pain, Diarrhea, Nausea, Vomiting Genitourinary Female: absent: Dysuria, Hematuria Skin: absent: Rash Neurological: absent: Headache, Dizziness Endocrine: absent: Diaphoresis Psychiatric: absent: Anxiety, Depression, Suicidal Ideation Physical Exam Vital Signs Reviewed: Yes Vital Signs Temp Pulse Resp BP Pulse Ox 07/15/18 14:17 98.2 F 86 18 132/70 100 Temperature: Afebrile Blood Pressure: Normal Pulse: Regular Respiratory Rate: Normal Appearance: Positive for: Unkept (disheveled; smells of alcohol) Pain Distress: None Mental Status: Positive for: Agitated - Systems Exam Head: Present: Atraumatic, Normocephalic Pupils: Present: PERRL Extroacular Muscles: Present: EOMI Conjunctiva: Present: Normal Mouth: Present: Moist Mucous Membranes Neck: Present: Normal Range of Motion Respiratory/Chest: Present: Clear to Auscultation, Good Air Exchange. No: Respiratory Distress, Accessory Muscle Use, Wheezes, Rales, Rhonchi Cardiovascular: Present: Regular Rate and Rhythm, Normal S1, S2. No: Murmurs, Rub, Gallop Abdomen: Present: Normal Bowel Sounds. No: Tenderness, Distention, Peritoneal Signs, Rebound, Guarding Back: Present: Normal Inspection Upper Extremity: Present: Normal Inspection, Normal ROM, NORMAL PULSES. No: Cyanosis, Edema Lower Extremity: Present: Normal Inspection, NORMAL PULSES, Normal ROM. No: Edema Neurological: Present: GCS=15, CN II-XII Intact, Speech Normal, Motor Func Grossly Intact, Normal Sensory Function Skin: Present: Warm, Dry, Normal Color. No: Rashes Psychiatric: Present: Alert, Oriented x 3, Agitated Medical Decision Making ED Course and Treatment: 07/15/18 14:05 Impression: Patient is a 33 year old female, with a past medical history of lupus, who presents to the emergency department complaining of generalized body pain. Patient reports fever and cough; requests pain medication. Patient is agitated and seems intoxicated upon arrival. Patient was recently admitted to [facility] [place] for anxiety and alcohol abuse, discharged 2 days ago. On exam; patient is disheveled and smells of alcohol. Otherwise unremarkable. Agitated at times but redirectable. Plan: -- Labs -- Chest X-Ray -- IV Fluids -- Toradol -- POC Urine -- Urinalysis -- Reassess and disposition Prior Visits: Notes and results from previous visits were reviewed. Progress Notes: 07/15/18 17:08 Cxray negative. Labs show baseline anemia and elevated lfts. Patient made aware of need to follow-up with PMD and decrease alcohol use. UA shows blood. No complaint of dysuria. Instructed to follow-up. On reevaluation after tylenol and toradol reports feeling better and ambulated out of ED with steady gait. - RAD Interpretation Radiology Orders: 07/15/18 14:11 CHEST PORTABLE [RAD] Stat - Medication Orders Current Medication Orders: Sodium Chloride (Sodium Chloride 0.9%) 1,000 mls @ 999 mls/hr IV .Q1H1M STA Stop: 07/15/18 15:12 Discontinued Medications Ketorolac Tromethamine (Toradol) 30 mg IVP STAT STA Stop: 07/15/18 14:13 - Scribe Statement The provider has reviewed the documentation as recorded by the Scribe Venancio Rodriguez All medical record entries made by the Scribe were at my direction and personally dictated by me. I have reviewed the chart and agree that the record accurately reflects my personal performance of the history, physical exam, medical decision making, and the department course for this patient. I have also personally directed, reviewed, and agree with the discharge instructions and disposition. Disposition/Present on Arrival - Present on Arrival Any Indicators Present on Arrival: No History of DVT/PE: No History of Uncontrolled Diabetes: No Urinary Catheter: No History Surgical Site Infection Following: None - Disposition Have Diagnosis and Disposition been Completed?: Yes Diagnosis: Anemia, Elevated LFTs, History of alcohol abuse, Lupus, Total body pain, Hematuria, Upper respiratory infection Disposition: HOME/ ROUTINE Disposition Time: 15:55 Patient Plan: Discharge Condition: GOOD Discharge Instructions (ExitCare): Lupus, Normocytic Normochromic Anemia (DC) Additional Instructions: Follow-up with your PMD within 2 days. Return to ED if condition worsens. Forms: [employer] (Guamanian)
[2018-07-15 15:19] LABS: BASO # 0.01 K/mm3 (0.0-2.0); BASO % 0.3 % (0.0-3.0); EOS % 0.6 % (1.5-5.0); HEMOGLOBIN 8.7 g/dL (12.0-16.0); LYMPH # 1.4 (1.2-3.4); LYMPH % 45.1 % (22.0-35.0); MEAN CELL VOLUME 88.1 fl (80.0-105.0); MEAN CORPUSCULAR HEMOGLOBIN 26.4 pg (25.0-35.0); MEAN PLATELET VOLUME 8.3 fl (7.0-11.0); MONO # 0.3 (0.1-0.6); MONO % 9.4 % (1.0-6.0); RBC 3.29 10^6/uL (3.5-6.1); RED CELL DISTRIBUTION WIDTH 16.9 % (11.5-14.5); URINE BILIRUBIN NEGATIVE (NEGATIVE); URINE BLOOD TRACE-INTACT (NEGATIVE); URINE GLUCOSE (UA) NEGATIVE (NEGATIVE); URINE LEUKOCYTE ESTERASE NEGATIVE Leu/uL (NEGATIVE); URINE PROTEIN NEGATIVE mg/dL (<30 mg/dL); URINE UROBILINOGEN 0.2 E.U./dL (<1 E.U./dL); WHITE BLOOD COUNT 3.2 10^3/uL (4.5-11.0)
[2018-07-15 15:20] LABS: URINE APPEARANCE CLEAR (CLEAR); URINE COLOR LIGHT YELLOW (YELLOW)
[2018-07-15 15:23] LABS: ALB/GLOB RATIO 1.3 (1.1-1.8); ALBUMIN 4.4 g/dL (3.0-4.8); ALT/SGPT 59 U/L (7-56); AST/SGOT 91 U/L (14-36); BLOOD UREA NITROGEN 8 mg/dL (7-21); CALCIUM 9.2 mg/dL (8.4-10.5); GFR NON-AFRICAN AMERICAN > 60; LIPASE 119 U/L (23-300)
[2018-07-15 15:28] LABS: URINE BACTERIA MOD /hpf; URINE WBC 0 - 2 /hpf (0-6)
[2018-07-15 16:41] VITALS: BP 126/78; PULSE 89; O2SAT 98
--- NOTE | 2018-07-15 17:01 | RAD ---
Date of service: 07/15/2018 HISTORY: fever, cough COMPARISON: 03/02/2018. FINDINGS: LUNGS: No active pulmonary disease. PLEURA: No significant pleural effusion identified, no pneumothorax apparent. CARDIOVASCULAR: No atherosclerotic calcification present Normal. OSSEOUS STRUCTURES: No significant abnormalities. VISUALIZED UPPER ABDOMEN: Normal. OTHER FINDINGS: None. IMPRESSION: No active disease. No significant interval change compared to the prior examination(s). Concordant results with the preliminary interpretation rendered by the emergency department physician procedure.
== END 2018-07-15 16:49 | disposition home or self-care (01) ==
LOC: ED 13:55
DX: J06.9 Acute upper respiratory infection, unspecified (principal); D64.9 Anemia, unspecified; M32.9 Systemic lupus erythematosus, unspecified; M79.10 Myalgia, unspecified site; R79.89 Other specified abnormal findings of blood chemistry; F10.10 Alcohol abuse, uncomplicated; R31.9 Hematuria, unspecified; I10 Essential (primary) hypertension; Z91.14 Patient's other noncompliance with medication regimen; F17.210 Nicotine dependence, cigarettes, uncomplicated
CPT/HCPCS: 71045; 80053; 81001; 81025; 83690; 83735; 84100; 84702; 85025; 96374; 99283; J1885; J7030

== ENCOUNTER 2018-08-07 02:46 | Emergency (ER) | payer MEDICAID ==
[2018-08-07 02:57] VITALS: BMI 23.6
--- NOTE | 2018-08-07 03:40 | ED PDOC ---
Arrival/HPI - General Chief Complaint: Trauma Time Seen by Provider: 08/07/18 02:49 Historian: Patient - History of Present Illness Narrative History of Present Illness (Text): 08/07/18 03:35 A 33 year old female, whose past medical history includes seizure disorder, brought in by EMS to the emergency department for possible witnessed seizure episode. Patient reports also experiencing body aches and had loss of consciousness. Notes when about to experience a seizure episodes, explains she feels her body becomes jittery. Patient denies any other complaints at this time. Patient admits to history of smoking and EtOH abuse. Patient appears questionably intoxicated at this time. Past Medical History - Provider Review Nursing Documentation Reviewed: Yes - Infectious Disease Hx of Infectious Diseases: None - Cardiac Hx Cardiac Disorders: Yes Hx Hypertension: Yes (noncompliant to meds) - Pulmonary Hx Respiratory Disorders: Yes Hx Asthma: Yes - Neurological Hx Neurological Disorder: No - HEENT Hx HEENT Disorder: No - Renal Hx Renal Disorder: No - Endocrine/Metabolic Hx Endocrine Disorders: No - Hematological/Oncological Hx Blood Disorders: No - Integumentary Hx Dermatological Disorder: Yes Hx Eczema: Yes - Musculoskeletal/Rheumatological Hx Musculoskeletal Disorders: No Hx Falls: Yes - Gastrointestinal Hx Gastrointestinal Disorders: No - Genitourinary/Gynecological Hx Genitourinary Disorders: No - Psychiatric Hx Psychophysiologic Disorder: No Hx Substance Use: No - Surgical History Hx Section: Yes (x3) - Anesthesia Hx Anesthesia: Yes Hx Anesthesia Reactions: No Hx Malignant Hyperthermia: No Family/Social History - Physician Review Nursing Documentation Reviewed: Yes Family/Social History: No Known Family HX Smoking Status: Light Smoker < 10 Cigarettes Daily Hx Alcohol Use: Yes Hx Substance Use: No Allergies/Home Meds Allergies/Adverse Reactions: Allergies Penicillins Allergy (Verified 08/07/18 02:57) RASH Home Medications: Home Meds Medication Instructions Recorded Confirmed No Known Home Med 08/07/18 08/07/18 Review of Systems - Physician Review All systems were reviewed & negative as marked: Yes - Review of Systems Musculoskeletal: Myalgias Neurological: Seizure, Other (LOC) Physical Exam - Physical Exam Narrative Physical Exam (Text): Gen: VS reviewed, alert, well developed, well nourished, questionably int oxicated, mild distress Eye: EOMI, PERRL ENT: normal pharynx. Neck: no JVD, supple, no adenopathy CV: regular rate, regular rhythm, no rubs,no murmur, S1, S2 Pulm: no distress, clear to auscultation, no wheeze, no rhonchi, breath sounds equal, no rales Abd: soft, nontender, no guarding, no rebound, no rigidity Ext: no edema Skin: good color, no rash, no cyanosis Psych: responds appropriately to questions, normal affect Neuro: oriented x3, CN2-12 intact grossly, motor intact, sensation intact Vital Signs Reviewed: Yes Vital Signs Temp Pulse Resp BP Pulse Ox 08/07/18 03:10 98.1 F 82 13 151/99 H 99 Temperature: Afebrile Blood Pressure: Normal Pulse: Regular Respiratory Rate: Normal Appearance: Positive for: Other (appears questionably intoxicated) Pain Distress: None Mental Status: Positive for: Alert and Oriented X 3 Finger Stick Blood Glucose: 92 Medical Decision Making ED Course and Treatment: 08/07/18 03:38 Impression: 33 year old female with possible seizure. Physical exam shows patient appears questionably intoxicated. Plan: EKG Head CT Labs Reassess and disposition Progress Notes: - RAD Interpretation Radiology Orders: 08/07/18 03:17 HEAD W/O CONTRAST [CT] Stat - EKG Interpretation EKG Interpretation (Text): 08/07/18 06:11 ekg my read: nsr at 71 bpm, nml qrs, lvh, no acute sttw abn Interpreted by ED Physician: Yes - Scribe Statement The provider has reviewed the documentation as recorded by the Scribe Lexi Santamaria All medical record entries made by the Scribe were at my direction and personally dictated by me. I have reviewed the chart and agree that the record accurately reflects my personal performance of the history, physical exam, medical decision making, and the department course for this patient. I have also personally directed, reviewed, and agree with the discharge instructions and disposition. Disposition/Present on Arrival - Present on Arrival History of DVT/PE: No History of Uncontrolled Diabetes: No Urinary Catheter: No History of Decub. Ulcer: No History Surgical Site Infection Following: None - Disposition Forms: [employer] (Latvian)
[2018-08-07 04:26] LABS: BASO # 0.02 K/mm3 (0.0-2.0); BASO % 0.5 % (0.0-3.0); EOS % 0.5 % (1.5-5.0); HEMOGLOBIN 9.9 g/dL (12.0-16.0); LYMPH # 1.4 (1.2-3.4); LYMPH % 38.5 % (22.0-35.0); MEAN CELL VOLUME 83.6 fl (80.0-105.0); MEAN CORPUSCULAR HEMOGLOBIN 24.9 pg (25.0-35.0); MEAN CORPUSCULAR HGB CONC 29.8 g/dl (31.0-37.0); MEAN PLATELET VOLUME 8.2 fl (7.0-11.0); MONO # 0.2 (0.1-0.6); MONO % 4.4 % (1.0-6.0); RBC 3.97 10^6/uL (3.5-6.1); RED CELL DISTRIBUTION WIDTH 17.4 % (11.5-14.5); WHITE BLOOD COUNT 3.6 10^3/uL (4.5-11.0)
[2018-08-07 04:33] LABS: ALB/GLOB RATIO 1.4 (1.1-1.8); ALBUMIN 4.9 g/dL (3.0-4.8); ALT/SGPT 69 U/L (7-56); AST/SGOT 106 U/L (14-36); BLOOD UREA NITROGEN 14 mg/dL (7-21); CALCIUM 8.7 mg/dL (8.4-10.5); GFR NON-AFRICAN AMERICAN > 60
--- NOTE | 2018-08-07 07:44 | ED PDOC ---
Physical Exam Vital Signs Temp Pulse Resp BP Pulse Ox 08/07/18 06:20 89 14 111/58 L 100 08/07/18 03:10 98.1 F 82 13 151/99 H 99 Finger Stick Blood Glucose: 92 Medical Decision Making ED Course and Treatment: 08/07/18 07:[address] Araujo with patient pending sobriety & reevaluation. 08/07/18 11:50 Nurse spoke to patient's mother who is aware of patient's presence in the Emergency Room and will come to pick patient up. - Lab Interpretations Lab Results: Total Bilirubin 0.2 mg/dL (0.2-1.3) 08/07/18 03:55 AST 106 U/L (14-36) H 08/07/18 03:55 ALT 69 U/L (7-56) H 08/07/18 03:55 Alkaline Phosphatase 69 U/L (38-126) 08/07/18 03:55 Total Protein 8.3 g/dL (5.8-8.3) 08/07/18 03:55 Albumin 4.9 g/dL (3.0-4.8) H 08/07/18 03:55 Globulin 3.4 gm/dL 08/07/18 03:55 Albumin/Globulin Ratio 1.4 (1.1-1.8) 08/07/18 03:55 - RAD Interpretation Radiology Orders: 08/07/18 03:17 HEAD W/O CONTRAST [CT] Stat Disposition/Present on Arrival - Present on Arrival Any Indicators Present on Arrival: No History of DVT/PE: No History of Uncontrolled Diabetes: No Urinary Catheter: No History of Decub. Ulcer: No History Surgical Site Infection Following: None - Disposition Have Diagnosis and Disposition been Completed?: Yes Diagnosis: Alcohol abuse Disposition: HOME/ ROUTINE Disposition Time: 11:54 Patient Plan: Discharge Condition: STABLE Discharge Instructions (ExitCare): Alcohol Abuse and Alcoholism (DC) Print Language: LITHUANIAN Additional Instructions: Please follow up in clinic or with your PCP Referrals: Lydia Matos MD [Medical Doctor] - Follow up with primary [facility] [Outside] - Follow up with primary Forms: [employer] (Latvian)
--- NOTE | 2018-08-07 08:53 | CT ---
Date of service: 08/07/2018 PROCEDURE: CT HEAD WITHOUT CONTRAST. HISTORY: fall, seizure COMPARISON: 03/02/2018 TECHNIQUE: Axial computed tomography images were obtained through the head/brain without intravenous contrast. Radiation dose: Total exam DLP = 852.62 mGy-cm. This CT exam was performed using one or more of the following dose reduction techniques: Automated exposure control, adjustment of the mA and/or kV according to patient size, and/or use of iterative reconstruction technique. FINDINGS: HEMORRHAGE: No intracranial hemorrhage. BRAIN: No mass effect or edema. No atrophy or chronic microvascular ischemic changes. VENTRICLES: Unremarkable. No hydrocephalus. CALVARIUM: Unremarkable. PARANASAL SINUSES: Unremarkable as visualized. No significant inflammatory changes. MASTOID AIR CELLS: Unremarkable as visualized. No inflammatory changes. OTHER FINDINGS: None. IMPRESSION: No acute intracranial findings
[2018-08-07 09:16] VITALS: RESP 18
[2018-08-07 13:34] VITALS: BP 112/59; PULSE 85; TEMP 98; O2SAT 99
--- NOTE | 2018-08-07 19:13 | CARD ---
APPROVED REPORT Date of service: 08/07/2018 EKG Measurement Heart [id number] <Conclusion> Normal sinus rhythm with sinus arrhythmia Minimal voltage criteria for LVH, may be normal variant Minor intraventricular conduction delay of RBBB type Borderline ECG
== END 2018-08-07 14:21 | disposition home or self-care (01) ==
LOC: ED 02:46
DX: F10.10 Alcohol abuse, uncomplicated (principal)
CPT/HCPCS: 70450; 80053; 80320; 81025; 82550; 82948; 85025; 93005; 96374; 99285; J2405